=== PATIENT | male | born 1940 | race Caucasian/White ===

== ENCOUNTER 2016-11-20 09:38 | Inpatient (IN) | payer OTHER ==
[~2016-11-20] VITALS: Ht 188 cm; Wt 142.4 kg
[~2016-11-20 09:38] MED LIST: CEFUROXIME AXE500 MG PO; CLINDAMYCIN300 MG PO; DILTIAZEM CD240 MG PO; DOXYCYCLINE MO100 MG PO; E-400400 IU PO; ELIQUIS5 MG PO; FLOMAX(MONOGRA0.4 MG PO; FUROSEMIDE40 MG PO; KEFLEX500 MG PO; LOPRESSOR100 M1 PO; METOPROLOL TART50 MG PO; MULTIVITAMIN1 TAB PO; SIMVASTATIN20 MG PO
--- NOTE | 2016-11-20 09:44 | NUR ---
PT STATES THAT HE WAS SENT BY DR AGUILAR FOR ADMISSION DUE TO R FOOT TOE INFECTIONS. PAIN 09/11 REFUSES MEDS AT TRIAGE, AFEBRILE WRITTEN BY JUDAH CERON.
--- NOTE | 2016-11-20 10:02 | NUR ---
PT AMB TO ROOM 5, AWAITING EVAL.
--- NOTE | 2016-11-20 10:05 | NUR ---
PHILLIP WILKINSON IN FOR EVAL.
--- NOTE | 2016-11-20 10:11 | ED UPPER/LOWER EXTREMITY COMPL ---
History of Present Illness General Chief Complaint: Lower Extremity Problems Stated Complaint: R LEG WOUND Source: patient, family Exam Limitations: no limitations Vital Signs & Intake/Output Vital Signs & Intake/Output Vital Signs Date Time Temp Pulse Resp B/P B/P Pulse O2 O2 Flow FiO2 Mean Ox Delivery Rate 11/24 0628 98.6 55 20 120/82 94 11/23 2158 54 132/78 11/23 2154 98.4 54 18 132/78 94 Room Air 11/23 1601 98.0 57 18 118/68 99 Room Air ED Intake and Output 11/24 0000 11/23 1200 Intake Total 240 100 Output Total 100 Balance 140 100 Intake, IV 100 Intake, Oral 240 0 Number 0 Bowel Movements Output, Urine 100 Reconcile Medications Apixaban (Eliquis) 5 MG TABLET 1 TAB PO BID Atrial Fibrillation Furosemide 40 MG TABLET 2 TAB PO DAILY CARDIO (Reported) Metoprolol Tartrate (Lopressor) 100 MG TABLET 1 TAB PO BID BP (Reported) Multivitamin (Multiple Vitamins) 1 EACH TABLET 1 TAB PO DAILY SUPPLEMENT ( Reported) Simvastatin (Zocor) 20 MG TAB 1 TAB PO QPM CHOLESTEROL (Reported) Tamsulosin Hydrochloride (Flomax) 0.4 MG CAP.ER.24H 1 CAP PO DAILY BPH ( Reported) Vitamin E (E-400) 400 IU SGL 1 TAB PO D SUPPLEMENT (Reported) Triage Note: PT STATES THAT HE WAS SENT BY DR AGUILAR FOR ADMISSION DUE TO R FOOT TOE INFECTIONS. PAIN 2/10 REFUSES MEDS AT TRIAGE, AFEBRILE Triage Nurses Notes Reviewed? yes Onset: Gradual Duration: worse persistent since (past several months) Timing: recent history Severity: moderate Severity Numbers: 7 No Modifying Factors: none HPI: Patient is a 76-year-old male presenting to the emergency department with chief complaint of worsening chronic wounds to his right lower extremity. Patient reports that he's been dealing with the wounds for the past 2-[address] Aguilar and Dr. molina to help manage his wounds. They've tried multiple different types of dressings which have not been helping. Denies any increased pain. No fevers or chills. Patient does report increased redness and discharge the area. The has been trying to soak up extra drainage with sanitation pads. Denies any cough or shortness of breath. No palpitations. He saw Dr. Aguilar yesterday and he advised him to come into the emergency department for admission due to worsening status of the wound. Most recently they were doing a Betadine dressing. (IDALIA MORROW) Allergies Coded Allergies: solifenacin (From VESICARE) (EYES SWELL 10/16/15) (IDA DOWNEY,JANESSA) Past History Travel History Traveled to [place] past 21 day No Medical History Any Pertinent Medical History? see below for history Neurological: NONE EENT: CELLULITIS Cardiovascular: AFIB, CAD, hypertension, hyperlipidemia, PVD Respiratory: pneumonia Gastrointestinal: NONE Hepatic: NONE Renal: benign prost hyperplasia Musculoskeletal: NONE Psychiatric: NONE Endocrine: obesity Blood Disorders: NONE Cancer(s): NONE ELECTRICIAN OUTSIDE/Reproductive: NONE Other Medical Hx: BPH, chronic venous insufficiency, recurrent cellulitis History of MRSA: Yes History of VRE: No History of CDIFF: No Pneumonia Vaccine: 05/28/10 Influenza Vaccine: 05/02/15 Surgical History Surgical History: non-contributory Psychosocial History Who do you live with Spouse Services at Home None What is your primary language Togolese Tobacco Use: Never used ETOH Use: denies use Illicit Drug Use: denies illicit drug use Family History Family History, If Any: Relation not specified for: *No pertinent family history Hx Contributory? No (IDALIA MORROW) Review of Systems Review of Systems Constitutional: Reports: no symptoms. Comments Review of systems: See HPI, All other systems negative. Constitutional, no chills fever or weight loss HEENT: No visual changes no sore throat no congestion Cardiovascular: No chest pain ,palpitation , orthopnea Skin, no jaundice Respiratory: No dyspnea cough sputum or hemoptysis GI: No nausea no vomiting : No dysuria No hematuria Muscle skeletal: no back pain, no neck pain, Neurologic: No increased numbness no confusion Psych: No stress anxiety or depression,. Heme/endocrine: No bruising no bleeding no polyuria or polydipsia Immunology: No splenectomy or history of AIDS (IDALIA MORROW) Physical Exam Physical Exam General Appearance: no apparent distress, alert, anxious, comfortable, obese Comments: Obese person in no acute distress HEENT: Pupils equally round and reactive to light and accommodation. Nose is atraumatic. Moist oral mucosa. Neck: Normal inspection Back: Nontender, Cardiovascular: Regular rate and rhythms no murmurs rubs or gallops, normal JVP Respiratory: No respiratory distress.breath sounds clear to auscultation bilaterally Abdomen: obese Extremity: Nonpitting edema noted over the left large family, 2+ pitting edema noted over the right lower extremity extending from the dorsum of the right foot up to mid monroy. Pedal pulses are 1+ bilaterally. Neuro: Alert oriented x3, slight diminished sensation to the right lower extremity on the dorsum of the foot. Unable to distinguish between sharp and dull but can still feel sensation. Skin: Erythema extending from the right foot up to mid monroy. Warm to palpation of this area. There is a 6.5 x 6.5 cm ulcerating lesion noted on the right medial malleolus, there is granulation tissue over this wound, unable to grade at this time. There is a second wound on the lateral aspect of the right monroy approximately 8 cm by 4-1/2 centimeters in size. Both wounds are ulcerous, erythematous. There is also granulation tissue on the second wound, unable to states at this time. There are ulcerous lesions noted between the first and second toe, second and third, third and fourth toes. Granulation tissue present. Unable to stage. Psych: Mood and affect is normal, memory and judgment is normal. (JAJA FISHER,IDALIA) Progress Differential Diagnosis: osteomyelitis, cellulitis Plan of Care: Orders Procedure Date/time Status Heart Healthy Diet 11/23 D Active EXTREMETIES OR SPEC 11/23 1346 Active FUNGAL CULTURE (INVASIVE) 11/23 1335 Active Current Medications Sig/Maria Teresa Start time Last Medication Dose Stop Time Status Admin Apixaban 5 MG BID 11/23 2199 AC 11/23 (Eliquis) 215 Furosemide 80 MG DAILY 11/21 1000 AC 11/23 (Lasix) 0904 Multivitamins 1 TAB DAILY 11/21 1000 AC 11/23 Therapeutic 0904 (Theragran-M Vitamins Tabs) Tamsulosin HCl 0.4 MG DAILY 11/21 1000 AC 11/23 (Flomax) 0904 Vitamin E 400 IU DAILY 11/21 1000 AC 11/23 (Vitamin E) 0903 Clotrimazole 1 DANY AT BEDTIME 11/20 2199 AC 11/22 (Lotrimin) 215 Metoprolol Tartrate 100 MG BID 11/20 2199 AC 11/23 (Lopressor) 215 Ampicillin Sodium/ 3,000 MG Q6 11/20 1800 AC 11/24 Sulbactam Sodium 0645 (Unasyn) Sodium Chloride 100 ML (Normal Saline 0.9%) Atorvastatin Calcium 10 MG 1700 11/20 1700 AC 11/23 (Lipitor) 1725 Acetaminophen 650 MG Q6P PRN 11/20 1315 AC (Tylenol) Oxycodone/ 1 TAB Q6P PRN 11/20 1315 AC Acetaminophen (Percocet) Oxycodone/ 2 TAB Q6P PRN 11/20 1315 AC Acetaminophen (Percocet) Laboratory Tests 11/24/16 0630: Anion Gap 8, Estimated GFR > 60, BUN/Creatinine Ratio 20.0, CBC w Diff NO MAN DIFF REQ, RBC 4.08 L, MCV 88.1, MCH 28.6, RDW 16.4 H, MPV 7.3 L, Gran % 69.6, Lymphocytes % 15.2 L, Monocytes % 10.6 H, Eosinophils % 4.0, Basophils % 0.6, Absolute Granulocytes 3.6, Absolute Lymphocytes 0.8 L, Absolute Monocytes 0.6, Absolute Eosinophils 0.2, Absolute Basophils 0, PUBS MCHC 32.5 L Microbiology 11/23 1334 EXTREMITIE: Fungal Culture - RECD 11/23 1334 EXTREMITIE: Gross Specimen Examination - RES GRAM NEGATIVE RODS GRAM POSITIVE COCCI 11/23 1334 EXTREMITIE: Gram Stain - RES Diagnostic Imaging: Viewed by Me: Radiology Read. Discussed w/RAD: Radiology Read. Radiology Impression: ? FB IN RIGHT [place]ROY (IDALIA MORROW) Departure Departure Time of Disposition: 1125 Disposition: HOME OR SELF CARE Condition: Stable Clinical Impression Primary Impression: Cellulitis Qualifiers: Site of cellulitis: unspecified site Qualified Code: L03.90 - Cellulitis, unspecified Secondary Impressions: Chronic wound of extremity Referrals: DEVORAH DOWNEY,ELDER Dumont (PCP/Family) Departure Forms: Customer Survey General Discharge Information Admission Note Spoke With: NAYA KNOX MD Documentation of Exam: Documentation of any treatments & extenuating circumstances including Concerns Regarding Discharge (functional status, medication knowledge or non-compliance, living conditions, etc.) that warrant an admission rather than observation: Patient requiring IV antibiotics, blood cultures to to return, wound debridement , elevation of the extremity. Podiatry consultation. Culture of the wound after debridement. Discharge at this time would be medically harmful. (JAJA FISHER,IDALIA) PA/JOINT SETTER Co-Sign Statement Statement: ED Attending supervision documentation- [X] I saw and evaluated the patient. I have also reviewed all the pertinent lab results and diagnostic results. I agree with the findings and the plan of care as documented in the PA's/JOINT SETTER's documentation. [X] I have reviewed the ED Record and agree with the PA's/JOINT SETTER's documentation. [] Additions or exceptions (if any) to the PAs/JOINT SETTER's note and plan are summarized below: [] (IDA DOWNEY,JANESSA) 11/20 121 EXTREMITIE: Culture & Sensitivity - ORD 11/20 1213 EXTREMITIE: Gram Stain - ORD 11/20 121 BODY FLUID: Body Fluid Culture - CAN Cancelled: OE 11/20 121 BODY FLUID: Gram Stain - CAN Cancelled: OE 11/20 1055 BLOOD: Blood Culture - RECD 11/20 1050 BLOOD: Blood Culture - RECD Diagnostic Imaging: Viewed by Me: Radiology Read. Discussed w/RAD: Radiology Read. Radiology Impression: ? FB IN RIGHT [place] Departure Departure Time of Disposition: 1125 Disposition: HOME OR SELF CARE Condition: Stable Clinical Impression Primary Impression: Cellulitis Qualifiers: Site of cellulitis: unspecified site Qualified Code: L03.90 - Cellulitis, unspecified Secondary Impressions: Chronic wound of extremity Referrals: ELDER FAIRCHILD MD (PCP/Family) Departure Forms: Customer Survey General Discharge Information Admission Note Spoke With: ABILIO DOWNEY,NAYA Documentation of Exam: Documentation of any treatments & extenuating circumstances including Concerns Regarding Discharge (functional status, medication knowledge or non-compliance, living conditions, etc.) that warrant an admission rather than observation: Patient requiring IV antibiotics, blood cultures to to return, wound debridement , elevation of the extremity. Podiatry consultation. Culture of the wound after debridement. Discharge at this time would be medically harmful.
--- NOTE | 2016-11-20 10:30 | NUR ---
MICHELLE WOUND NURSE AT BEDSIDE TO DRESS RIGHT FOOT WOUND.
[2016-11-20 11:06] LABS: ABSOLUTE BASOPHIL COUNT 0.1 /CUMM (0.0-0.2); ABSOLUTE EOSINOPHIL COUNT 0.3 /CUMM (0.0-0.7); ABSOLUTE GRANULOCYTE CT 5.5 /CUMM (1.4-6.5); ABSOLUTE LYMPH COUNT 0.9 /CUMM (1.2-3.4); ABSOLUTE MONOCYTE COUNT 0.8 /CUMM (0.10-0.60); BASOPHIL % 0.8 % (0.0-2.0); EOSINOPHIL % 3.6 % (0-5); HEMATOCRIT 36.8 % (42-52); MEAN CORPUSCULAR HGB 29.2 PG (27.0-31.0); MEAN CORPUSCULAR HGB CONC 33.5 G/DL (33.0-37.0); MEAN CORPUSCULAR VOLUME 87.3 FL (80.0-94.0); PLATELET COUNT 284 /CUMM (130-400); RBC DISTRIBUTION WIDTH 16.3 % (11.5-14.5); RED BLOOD CELL CT 4.21 /CUMM (4.70-6.10); WHITE BLOOD CELL COUNT 7.5 /CUMM (4.8-10.8)
--- NOTE | 2016-11-20 11:24 | NUR ---
PT TO X-RAY
--- NOTE | 2016-11-20 11:36 | NUR ---
BACK FROM X-RAY
--- NOTE | 2016-11-20 11:54 | RADIOLOGY REPORT ---
EXAMINATION: XRY-ANKLE 3 OR MORE VIEWS R, XRY-FOOT COMPLETE, R, [id number], RIGHT CLINICAL INFORMATION: Chronic wound. Getting worse. Rule out osteomyelitis. COMPARISON: Right foot radiographs 10/21/2016 and earlier TECHNIQUE: AP and lateral views of the right tibia and fibula. AP, lateral, and oblique views of the right ankle. AP, lateral, and oblique views of the right foot. FINDINGS: Mild to moderate medial and lateral compartment joint space narrowing of the right knee. There is tibial spine hypertrophy and lateral marginal osteophytosis. There are vascular calcifications. No knee joint effusion. There is a curvilinear metallic object overlying the soft tissues of the distal third of the tibia, medially no fracture or dislocation seen. No osseous destruction, erosion, or periostitis seen. There is a soft tissue defect of the medial soft tissues at the level of the medial malleolus and distal tibia. The subjacent tibial cortex appears intact without evidence of periosteal reaction, erosion, or cortical destruction. Ankle mortise intact. Mild lateral soft tissue swelling. No fracture seen. There is likely a small tibiotalar joint effusion. There is enthesopathy of the distal Achilles tendon attachment to the calcaneus. Small plantar calcaneal spur seen. There is spurring of the dorsal midfoot, particularly from the anterior talus. There are degenerative changes of the midfoot, most notable at the first metatarsal cuneiform articulation. There are hammertoe deformities of the second through fifth toes. Mild hallux valgus deformity. First metatarsophalangeal joint arthrosis. IMPRESSION: No acute osseous abnormality. Multifocal degenerative changes as described above. There is a soft tissue abnormality overlying the medial malleolus and medial distal tibia consistent with soft tissue wound. Subjacent tibial cortex is intact without evidence of erosion, destruction, or periosteal reaction. If there is further clinical concern for osteomyelitis, consider MRI. Curvilinear metallic foreign body seen within the medial soft tissues at the level of the mid to distal tibia. This could represent a radiopaque foreign body or sequelae of prior surgery or procedure.
--- NOTE | 2016-11-20 12:05 | History & Physical ---
General Information and HPI MD Statement: I have seen and personally examined GLADYS RAMIREZ and documented this H&P. The patient is a 76 year old M who presented with a patient stated chief complaint of [RT. lower extrimity pain, worsening wound]. Source of Information: patient, old records Exam Limitations: no limitations History of Present Illness: is a 75-year-old morbidly obese male with past medical history significant for hypertension, hyperlipidemia, obesity, atrial fibrillation on Elequis, BPH, CAD, Obesity, chronic venous insufficiency with chronic venous ulcer status, and recurrent cellulitis of his right lower extremity presented to the ED with a c/o of worsening wound on the RT. lower extrimity. Patient has been seen by for wound care of chronic wound on Rt. lower extrimity, he had wound on the lateral and medical aspect of Rt. Ankle, about 2 months ago he developed a hammr toe which progressed to open wound over the 2nd toe, he had wound care over the last 2 months with no improvement, refer him to for more evaluation, he has been seen by yesterday who advised him to come to ED for more evaluation as the wound appeared infected. Patient report swelling, redness, hotness and pain over wounds, the worst wound is the one that is on the medial aspect of the ankle and the one over the second toe. He denies fever, chills, no n/v, no cp, sob, and there is no chane in the urinary or bowel habits. Allergies/Medications Allergies: Coded Allergies: Penicillins (THROAT SWELLING 10/16/15) solifenacin (From VESICARE) (EYES SWELL 10/16/15) Home Med list Apixaban (Eliquis) 5 MG TABLET 1 TAB PO BID Atrial Fibrillation Furosemide 40 MG TABLET 2 TAB PO DAILY CARDIO (Reported) Metoprolol Tartrate (Lopressor) 100 MG TABLET 1 TAB PO BID BP (Reported) Multivitamin (Multiple Vitamins) 1 EACH TABLET 1 TAB PO DAILY SUPPLEMENT ( Reported) Simvastatin (Zocor) 20 MG TAB 1 TAB PO QPM CHOLESTEROL (Reported) Tamsulosin Hydrochloride (Flomax) 0.4 MG CAP.ER.24H 1 CAP PO DAILY BPH ( Reported) Vitamin E (E-400) 400 IU SGL 1 TAB PO D SUPPLEMENT (Reported) Compliance With Home Meds: GOOD Past History Travel History Traveled to [place] past 21 day No Medical History Neurological: NONE EENT: CELLULITIS Cardiovascular: AFIB, CAD, hypertension, hyperlipidemia, PVD Respiratory: pneumonia Gastrointestinal: NONE Hepatic: NONE Renal: benign prost hyperplasia Musculoskeletal: NONE Psychiatric: NONE Endocrine: obesity Blood Disorders: NONE Cancer(s): NONE 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 Cardiovascular: Reports: no symptoms. Respiratory: Reports: no symptoms. Skin: Reports: see HPI, change in skin color, erythema. Neurological/Psychological: Reports: no symptoms. All Other Systems: Reviewed and Negative Exam & Diagnostic Data Last 24 Hrs of Vital Signs/I&O Vital Signs Date Time Temp Pulse Resp B/P B/P Pulse O2 O2 Flow FiO2 Mean Ox Delivery Rate 11/20 0943 97.1 64 18 105/66 97 Room Air Intake & Output 11/20 1600 11/20 0800 11/20 0000 Intake Total 500 Output Total Balance 500 Intake, IV 500 Patient 325 lb Weight Physical Exam General Appearance Alert, Oriented X3, Cooperative, No Acute Distress Skin Rt. lower extrimity covered with clean dressing, at the border of the dressing skin appears red and swollen, hot to touch. Rt. lower extrimity dark skin color, there is a healing wound over the medial aspect of the foot with black eschar, there is also open ulcer over the second toe Cardiovascular Regular Rate, Normal S1, Normal S2 Lungs Clear to Auscultation, Normal Air Movement Abdomen Normal Bowel Sounds, Soft, No Tenderness Extremities As described above Last 24 Hrs of Labs/Charly: Laboratory Tests 11/20/16 1050: Lactic Acid Pending 11/20/16 1050: Anion Gap 12, Estimated GFR > 60, BUN/Creatinine Ratio 26.0 H, Glucose 82, Lactic Acid 1.5, Calcium 8.4, Total Bilirubin 0.7, AST 20, ALT 24, Alkaline Phosphatase 88, C-Reactive Prot, Quant 3.3 H, Total Protein 7.7, Albumin 3.5, Globulin 4.2, Albumin/Globulin Ratio 0.8 L, CBC w Diff NO MAN DIFF REQ, RBC 4.21 L, MCV 87.3, MCH 29.2, RDW 16.3 H, MPV 7.0 L, Gran % 73.0, Lymphocytes % 12.3 L, Monocytes % 10.3 H, Eosinophils % 3.6, Basophils % 0.8, Absolute Granulocytes 5.5, Absolute Lymphocytes 0.9 L, Absolute Monocytes 0.8 H, Absolute Eosinophils 0.3, Absolute Basophils 0.1, PUBS MCHC 33.5, ESR Westergren Pending Microbiology 11/20 1214 BODY FLUID: Body Fluid Culture - ORD 11/20 1214 BODY FLUID: Gram Stain - ORD 11/20 1055 BLOOD: Blood Culture - RECD 11/20 1050 BLOOD: Blood Culture - RECD Diagnostic Data Other Results Rt. lower extrimity X-ray: IMPRESSION: No acute osseous abnormality. Multifocal degenerative changes as described above. There is a soft tissue abnormality overlying the medial malleolus and medial distal tibia consistent with soft tissue wound. Subjacent tibial cortex is intact without evidence of erosion, destruction, or periosteal reaction. If there is further clinical concern for osteomyelitis, consider MRI. Curvilinear metallic foreign body seen within the medial soft tissues at the level of the mid to distal tibia. This could represent a radiopaque foreign body or sequelae of prior surgery or procedure. Assessment/Plan Assessment: is a 75-year-old morbidly obese male with past medical history significant for hypertension, hyperlipidemia, obesity, atrial fibrillation on Elequis, BPH, CAD, Obesity, chronic venous insufficiency with chronic venous ulcer status, and recurrent cellulitis of his right lower extremity presented to the ED with a c/o of worsening wound on the RT. lower extrimity. Admitted for cellulitis. Vitals, exam and labs as above Assessment: #Cellulitis of Rt.Lower extrimity needs to R/O osteomyelitis #Hx. of atrial fibrillation on Elequis #Hx. of hypertension, hyperlipidemia #chronic venous insufficiency with chronic venous ulcer status #Hx. of BPH Plan: -Will admitt to general medicine floor -Will start IV antibiotic -Blood culture sent by ED, will f/u -Will send wound culture -Monitor for any spiking fever -Will obtain podiatry consult with -Will obtain wound consult with -Assess the need of MRI of RT. lower extrimity to R/O osteomyelitis -Will continue all home meds -Wound care, daily dressing -Elevate rt. lower extrimity to reduce edema -Will order rt. lower extrimity venous doppler to R/O DVT Pain pathway Heart healthy diet DVT PPX. Eliquis Full code As Ranked By This Provider Problem List: 1. Atrial fibrillation 2. RLE CELLULITIS 3. Morbid obesity Core Measures/Miscellaneous Acute Coronary Syndrome ACS Diagnosis: No Cerebrovascular Accident CVA/TIA Diagnosis: No Congestive Heart Failure CHF Diagnosis: No Venous Thromboembolism VTE Risk Factors: Acute medical illness, Age > 40, Obesity [facility] prophylaxis d/t: No contraindications No VTE Pharm Prophylaxis d/t: No contraindications VTE Diagnosis: No VTE Type: NONE VTE Confirmed by (Test): NONE Severe Sepsis Severe Sepsis Present: No Septic Shock Septic Shock Present: No Miscellaneous Documentation Attending Case Discussed With: Primary Care Physician: ELDER FAIRCHILD MD Patient sees these Specialists Supply Chain Associate Wound care: and Level of Patient Care: General Medicine
--- NOTE | 2016-11-20 12:23 | NUR ---
HOUSESTAFF IN FOR EVAL
--- NOTE | 2016-11-20 13:13 | NUR ---
DR AGUILAR AT BEDSIDE.
--- NOTE | 2016-11-20 13:26 | Cons- Podiatry ---
General Information and HPI Consulting Request Date of Consult: 11/20/16 Requested By: NAYA KNOX MD History of Present Illness: Mr. Everett is a 76-year-old male with an extensive past medical history including chronic venous insufficiency with associated nonhealing ulcers to his right lower extremity. The patient has been seen by me in the wound center for periodic debridements and local intensive wound care. Unfortunately, the patient's foot and ankle have worsened over the recent interval with the patient reporting worsening symptoms of pain redness and swelling from his right lower extremity. The patient denies systemic signs of infection. The patient denies nausea vomiting fever chills. Allergies/Medications Allergies: Coded Allergies: Penicillins (THROAT SWELLING 10/16/15) solifenacin (From VESICARE) (EYES SWELL 10/16/15) Home Med List: Apixaban (Eliquis) 5 MG TABLET 1 TAB PO BID Atrial Fibrillation Furosemide 40 MG TABLET 2 TAB PO DAILY CARDIO (Reported) Metoprolol Tartrate (Lopressor) 100 MG TABLET 1 TAB PO BID BP (Reported) Multivitamin (Multiple Vitamins) 1 EACH TABLET 1 TAB PO DAILY SUPPLEMENT ( Reported) Simvastatin (Zocor) 20 MG TAB 1 TAB PO QPM CHOLESTEROL (Reported) Tamsulosin Hydrochloride (Flomax) 0.4 MG CAP.ER.24H 1 CAP PO DAILY BPH ( Reported) Vitamin E (E-400) 400 IU SGL 1 TAB PO D SUPPLEMENT (Reported) Past History Medical History Neurological: NONE EENT: CELLULITIS Cardiovascular: AFIB, CAD, hypertension, hyperlipidemia, PVD Respiratory: pneumonia Gastrointestinal: NONE Hepatic: NONE Renal: benign prost hyperplasia Musculoskeletal: NONE Psychiatric: NONE Endocrine: obesity Blood Disorders: NONE Cancer(s): NONE 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/Reproductive: NONE Other Medical Hx: BPH, chronic venous insufficiency, recurrent cellulitis Surgical History Pertinent Surgical History: non-contributory Family History Relations & Conditions If Any: Relation not specified for: *No pertinent family history Psychosocial History Services at Home: None ETOH Use: denies use Illicit Drug Use: denies illicit drug use Review of Systems Review of Systems: Unremarkable except for that noted history of present illness Exam & Diagnostic Data Vital Signs and I&O Vital Signs Date Time Temp Pulse Resp B/P B/P Pulse O2 O2 Flow FiO2 Mean Ox Delivery Rate 11/20 0943 97.1 64 18 105/66 97 Room Air Intake & Output 11/20 1600 11/20 0800 11/20 0000 11/19 1600 11/19 0800 11/19 0000 Intake Total 500 Output Total Balance 500 Intake, IV 500 Patient 325 lb Weight Physical Exam: Multiple necrotic ulcers noted to the distal lateral leg and the medial ankle. There is necrotic slough overlying a mixed granular and fibrotic wound bed. No probing or undermining identified. A moderate amount of serous drainage is noted from the wound beds. There is chronic edema noted to the right lower extremity, especially involving the foot and the digits. The webspaces to the right foot noted to be macerated with fungoid appearing debris identified. Assessment/Plan Assessment/Plan Right lower extremity cellulitis in the setting of chronic venous insufficiency and nonhealing ulcerations. Recommend strict elevation of the right lower extremity above the level of the heart. Broad-spectrum IV antibiotic coverage. Tentatively plan on a formal debridement of his necrotic wounds on Wednesday. Consult Acknowledgment - Thank you for your consult request. Attending Review Statement Attending Statement Attending Statement: examined this patient
--- NOTE | 2016-11-20 13:50 | NUR ---
BED ASSIGNMENT 217
--- NOTE | 2016-11-20 14:15 | NUR ---
SPOKE WITH DR COMBS, PT IS TO BE STARTED ON HEPARIN DRIP HE WILL BE OFF OF ELIQUIS DUE TO OR ON WEDNESDAY.
--- NOTE | 2016-11-20 14:20 | NUR ---
HEPARIN DRIP STARTED AT 26ML/ HR. PTT DUE IN 6 HOURS.
--- NOTE | 2016-11-20 14:29 | ULTRASOUND REPORT ---
EXAMINATION: US TRIPLEX LOWER EXTREMITY, RIGHT CLINICAL INFORMATION: Right lower extremity swelling COMPARISON: None TECHNIQUE: Color-flow triplex imaging with spectral analysis and compression Doppler were performed on the right lower extremity. FINDINGS: Respiratory variation, normal compression and augmented flow are noted throughout the lower extremity. The visualized common femoral vein, superficial femoral vein, profunda femoral vein, popliteal vein and midcalf peroneal and posterior tibial venous segments show no evidence of deep venous thrombosis. There is no Jacinto's cyst. IMPRESSION: Normal triplex scan without evidence of deep venous thrombosis involving the right lower extremity.
--- NOTE | 2016-11-20 14:32 | NUR ---
REPORT TO NEMO CERON ON 2NB. OK TO SEND PT NOW. TRANSPORT CALLED.
--- NOTE | 2016-11-20 14:52 | NUR ---
PT TO FLOOR VIA STRETCHER. ALL PAPERWORK AND BELONGINGS SENT WITH PT. CLINICAL STATUS UNCHANGED.
[2016-11-20 15:00] VITALS: BP 118/80
--- NOTE | 2016-11-20 15:00 | NUR ---
ADMISSION NOTE: PT ARRIVED TO FLOOR ON STRETCHER WITH DISTRIBUTION, A/OX3, RA, IV INTACT, IV HEPARIN GTT RUNNING PER MD ORDER, RLE DRESSED BY WOUND NURSE, 0/10 PAIN REPORTED, RASH NOTED TO BUE, LOWER BACK-CHARTED ON SKIN MAN, ORIENTED TO ROOM, RESTING COMFORTABLY IN BED, WILL CONTINUE TO MONITOR.
--- NOTE | 2016-11-20 16:22 | Cons- Infect Disease ---
General Information and HPI Consulting Request Date of Consult: 11/20/16 Requested By: NAYA KNOX MD Reason for Consult: Rule out cellulitis right foot Source of Information: patient, old records History of Present Illness: This is a 68-year-old man with a history of atrial fibrillation, coronary artery disease, chronic venous insufficiency, with recurrent cellulitis of the right leg, requiring multiple hospitalizations, most recently one year prior to admission, with a chronic right medial malleolar ulcer and more recent onset, over the past several months, of ulcerations and maceration of the toes and dorsal and lateral aspects of the right foot, treated with local wound care and with at least one course of antibiotics (Bactrim) without improvement, admitted today after he was referred to the emergency room by Podiatry for admission for further management of his wounds. He does note mild discomfort in the right foot, but he denies any recent fevers or chills. He is apparently scheduled for surgery next week for debridement of the necrotic ulcers. Allergies/Medications Allergies: Coded Allergies: Penicillins (THROAT SWELLING 10/16/15) solifenacin (From VESICARE) (EYES SWELL 10/16/15) Home Med List: Apixaban (Eliquis) 5 MG TABLET 1 TAB PO BID Atrial Fibrillation Furosemide 40 MG TABLET 2 TAB PO DAILY CARDIO (Reported) Metoprolol Tartrate (Lopressor) 100 MG TABLET 1 TAB PO BID BP (Reported) Multivitamin (Multiple Vitamins) 1 EACH TABLET 1 TAB PO DAILY SUPPLEMENT ( Reported) Simvastatin (Zocor) 20 MG TAB 1 TAB PO QPM CHOLESTEROL (Reported) Tamsulosin Hydrochloride (Flomax) 0.4 MG CAP.ER.24H 1 CAP PO DAILY BPH ( Reported) Vitamin E (E-400) 400 IU SGL 1 TAB PO D SUPPLEMENT (Reported) Past History Travel History Traveled to [place] past 21 day No Medical History Blood Transfusion Hx: No Neurological: NONE Cardiovascular: AFIB, CAD, chronic venous insuff, hypertension, hyperlipidemia, PVD Respiratory: pneumonia Gastrointestinal: NONE Hepatic: NONE Renal: benign prost hyperplasia Musculoskeletal: NONE Psychiatric: NONE Endocrine: obesity Blood Disorders: NONE Cancer(s): NONE BRAILLE CODER/Reproductive: NONE Other Medical Hx: Recurrent cellulitis of the right leg History of MRSA: Yes History of VRE: No History of CDIFF: No Pneumonia Vaccine: 05/28/10 Influenza Vaccine: 05/02/16 Surgical History Surgical History: status post venous stripping Family History Relations & Conditions If Any: Relation not specified for: *No pertinent family history Psychosocial History Services at Home: None Smoking Status: Never Smoked ETOH Use: denies use Illicit Drug Use: denies illicit drug use Review of Systems Review of Systems All Other Systems: Reviewed and Negative Exam & Diagnostic Data Last 24 Hrs of Vital Signs/I&O Vital Signs Date Time Temp Pulse Resp B/P B/P Pulse O2 O2 Flow FiO2 Mean Ox Delivery Rate 11/20 1500 98.4 70 16 118/80 98 Room Air 11/20 1323 97.0 68 18 131/68 98 Room Air 11/20 1130 97.1 70 20 126/70 98 Room Air 11/20 0943 97.1 64 18 105/66 97 Room Air Intake & Output 11/20 1600 11/20 0800 11/20 0000 Intake Total 500 Output Total Balance 500 Intake, IV 500 Patient 325 lb Weight Weight Reported by Patient Measurement Method Physical Exam Other Physical Findings: He is awake and alert in no acute distress. He is afebrile. Skin reveals no rash. HEENT exam is negative. Neck is supple with no adenopathy. Lungs are clear. Heart regular rhythm with no murmur. Abdomen is soft, nontender with positive bowel sounds. Back no CVA tenderness. Extremities chronic venous stasis changes both lower extremities; decreased pulses both feet; right foot swelling and erythema, with maceration of the toes and with necrotic slough over the medial malleolar, dorsal and lateral ulcers; slightly tender to palpation; left second toe ulcer over the dorsal aspect with no surrounding inflammation. Neuro is without focality. Last 24 Hours of Lab Results: Laboratory Tests 11/20 11/20 1050 1050 Chemistry Sodium (137 - 145 mmol/L) 138 Potassium (3.5 - 5.1 mmol/L) 4.2 Chloride (98 - 107 mmol/L) 98 Carbon Dioxide (22 - 30 mmol/L) 29 Anion Gap (5 - 16) 12 BUN (9 - 20 mg/dL) 26 H Creatinine (0.7 - 1.2 mg/dL) 1.0 Estimated GFR (>60 ml/min) > 60 BUN/Creatinine Ratio (7 - 25 %) 26.0 H Glucose (65 - 99 mg/dL) 82 Lactic Acid (0.7 - 2.1 mmol/L) Cancelled 1.5 Calcium (8.4 - 10.2 mg/dL) 8.4 Total Bilirubin (0.2 - 1.3 mg/dL) 0.7 AST (17 - 59 U/L) 20 ALT (21 - 72 U/L) 24 Alkaline Phosphatase (< 127 U/L) 88 C-Reactive Prot, Quant (<1.0 mg/dL) 3.3 H Total Protein (6.3 - 8.2 g/dL) 7.7 Albumin (3.5 - 5.0 g/dL) 3.5 Globulin (1.9 - 4.2 gm/dL) 4.2 Albumin/Globulin Ratio (1.1 - 2.2 %) 0.8 L Hematology CBC w Diff NO MAN DIFF REQ WBC (4.8 - 10.8 /CUMM) 7.5 RBC (4.70 - 6.10 /CUMM) 4.21 L Hgb (14.0 - 18.0 G/DL) 12.3 L Hct (42 - 52 %) 36.8 L MCV (80.0 - 94.0 FL) 87.3 MCH (27.0 - 31.0 PG) 29.2 RDW (11.5 - 14.5 %) 16.3 H Plt Count (130 - 400 /CUMM) 284 MPV (7.4 - 10.4 FL) 7.0 L Gran % (42.2 - 75.2 %) 73.0 Lymphocytes % (20.5 - 51.1 %) 12.3 L Monocytes % (1.7 - 9.3 %) 10.3 H Eosinophils % (0 - 5 %) 3.6 Basophils % (0.0 - 2.0 %) 0.8 Absolute Granulocytes (1.4 - 6.5 /CUMM) 5.5 Absolute Lymphocytes (1.2 - 3.4 /CUMM) 0.9 L Absolute Monocytes (0.10 - 0.60 /CUMM) 0.8 H Absolute Eosinophils (0.0 - 0.7 /CUMM) 0.3 Absolute Basophils (0.0 - 0.2 /CUMM) 0.1 PUBS MCHC (33.0 - 37.0 G/DL) 33.5 ESR Westergren (0 - 10 MM) 41 H Last 24 Hours of Charly Results: Blood cultures November 20 pending Diagnostic Data Recent Imaging Findings: X-rays of the right foot, ankle, tibia and fibula November 20 reveals no evidence of osteomyelitis Doppler of the right leg November 20 negative Assessment/Plan Assessment/Plan Impression: This is a 76-year-old man with chronic venous insufficiency, recurrent cellulites of the right leg and chronic, nonhealing ulcers of the right leg and foot, with worsening inflammation over the last several weeks, admitted today for further management of these ulcers in anticipation of debridement next week. He appears to have, at the least, a localized cellulitis of the right foot, with the possibility of a fungal superinfection involving the interdigital webspaces. He has no fever or leukocytosis; therefore the role of antibiotics is unclear, but, with the erythema and tenderness, it may be reasonable to cover him empirically. Of note he has a remote history of a penicillin allergy, but it appears that he tolerated a dose of Unasyn in the emergency room on 2011 and he has tolerated cephalosporins. Underlying osteomyelitis is possible, but his x-rays are negative, and it does not appear that he has any significant arterial disease that would increase his risk for this. Of note he has had a stimulator implanted in the right lower back for bladder incontinence, which precludes the ability for him to have an MRI. Suggestion: 1. Elevation of the right leg 2. Await debridement in the OR next week 3. KIA of the interdigital webspaces 4. Could apply a topical antifungal (for example Miconazole) to his interdigital webspaces 5. Begin Unasyn 3 g IV every 6 hours Consult Acknowledgment - Thank you for your consult request.
[2016-11-20 21:16] LABS: PTT 39 SEC (25-37)
[2016-11-20 22:34] VITALS: BP 110/62
[2016-11-21 04:47] LABS: PTT > 120 SEC (25-37)
[2016-11-21 07:07] VITALS: BP 124/72
[2016-11-21 08:03] LABS: ABSOLUTE BASOPHIL COUNT 0 /CUMM (0.0-0.2); ABSOLUTE EOSINOPHIL COUNT 0.2 /CUMM (0.0-0.7); ABSOLUTE GRANULOCYTE CT 4.9 /CUMM (1.4-6.5); ABSOLUTE LYMPH COUNT 0.9 /CUMM (1.2-3.4); ABSOLUTE MONOCYTE COUNT 0.6 /CUMM (0.10-0.60); BASOPHIL % 0.7 % (0.0-2.0); EOSINOPHIL % 3.6 % (0-5); GRANULOCYTE % 73.2 % (42.2-75.2); HEMATOCRIT 37.4 % (42-52); MEAN CORPUSCULAR VOLUME 87.8 FL (80.0-94.0); MEAN PLATELET VOLUME 7.6 FL (7.4-10.4); PLATELET COUNT 243 /CUMM (130-400); RBC DISTRIBUTION WIDTH 16.3 % (11.5-14.5); RED BLOOD CELL CT 4.26 /CUMM (4.70-6.10); WHITE BLOOD CELL COUNT 6.7 /CUMM (4.8-10.8)
--- NOTE | 2016-11-21 08:44 | PN- Housestaff ---
Subjective Follow-up For: cellulitis Subjective: Saw pt at bedside this AM. He denied any pain. He stated he felt well. No acue overnight events and no complaints. Pt on heparin, leg elevated. Needs dressing change. Review of Systems Constitutional: Denies: chills, fever, weakness. EENTM: Reports: no symptoms. Cardiovascular: Denies: chest pain, palpitations. Respiratory: Reports: no symptoms. Gastrointestinal: Reports: no symptoms. Genitourinary: Reports: no symptoms. Musculoskeletal: Reports: joint pain, joint swelling, muscle pain. Skin: Reports: no symptoms. Objective Last 24 Hrs of Vital Signs/I&O Vital Signs Date Time Temp Pulse Resp B/P B/P Pulse O2 O2 Flow FiO2 Mean Ox Delivery Rate 11/21 0707 124/72 11/21 0653 98.8 64 20 96 11/20 2234 99.0 68 20 110/62 97 Room Air 11/20 2221 68 110/62 11/20 1500 98.4 70 16 118/80 98 Room Air 11/20 1323 97.0 68 18 131/68 98 Room Air 11/20 1130 97.1 70 20 126/70 98 Room Air 11/20 0943 97.1 64 18 105/66 97 Room Air Intake & Output 11/21 1600 11/21 0800 11/21 0000 Intake Total 760 517.8 Output Total 375 250 Balance 385 267.8 Intake, IV 520 37.8 Intake, Oral 240 480 Number 0 Bowel Movements Output, Urine 375 250 Physical Exam General Appearance: Alert, Oriented X3, Cooperative, No Acute Distress Skin: RLE in bandages. Chronic skin changes and erythema on plantar surface of foot extending past ankle. HEENT: Atraumatic, PERRLA, EOMI Neck: Supple Cardiovascular: Regular Rate, Normal S1, Normal S2 Lungs: Normal Air Movement Abdomen: Soft, No Tenderness Extremities: Pt has RLE elevated and in bandages. Did not unwrap. Bandages soiled. Wound foul smelling. Some serous drainage noted. No aydin purulence or bleeding Current Medications: Current Medications Sig/Maria Teresa Start time Last Medication Dose Route Stop Time Status Admin Acetaminophen 650 MG Q6P PRN 11/20 1315 AC PO Ampicillin Sodium/ 3,000 MG Q6 11/20 1800 AC 11/21 Sulbactam Sodium IV 0539 Sodium Chloride 100 ML Apixaban 5 MG BID 11/20 2200 CAN PO Atorvastatin Calcium 10 MG 1700 11/20 1700 AC 11/20 PO 1827 Ceftazidime 0 .STK-MED ONE 11/20 1103 DC .ROUTE Ceftazidime 1,000 MG ONCE ONE 11/20 1045 DC 11/20 IV 11/20 1046 1107 Ceftriaxone Sodium 1,000 MG ONCE ONE 11/20 1045 CAN IV 11/20 1046 Clotrimazole 1 DANY AT BEDTIME 11/20 2200 AC 11/20 TOP 2222 Furosemide 80 MG DAILY 11/21 1000 AC PO Heparin Sodium 15,000 UNIT .STK-MED ONE 11/20 220 DC (Porcine) IV 11/20 220 Heparin Sodium 11,056 UNIT ONCE ONE 11/20 2142 DC 11/20 (Porcine) IV 11/20 214 2222 Heparin Sodium 25,000 UNIT Q24H 11/20 1345 AC 11/20 (Porcine) IV 1420 Sodium Chloride 500 ML Metoprolol Tartrate 100 MG BID 11/20 2200 AC 11/20 PO 2221 Multivitamins 1 TAB DAILY 11/21 1000 AC Therapeutic PO Oxycodone/ 1 TAB Q6P PRN 11/20 1315 AC Acetaminophen PO Oxycodone/ 2 TAB Q6P PRN 11/20 1315 AC Acetaminophen PO Tamsulosin HCl 0.4 MG DAILY 11/21 1000 AC PO Vancomycin HCl 0 .STK-MED ONE 11/20 1103 DC .ROUTE Vancomycin HCl 2,000 MG ONCE ONE 11/20 1100 DC 11/20 Sodium Chloride 500 ML IV 11/20 1259 1140 Vitamin E 400 IU DAILY 11/21 1000 AC PO Assessment/Plan Assessment: This is a 76 yo male with PMH hypertension, hyperlipidemia, obesity, atrial fibrillation on Eliquis, BPH, CAD, Obesity, chronic venous insufficiency with chronic venous ulcers, and recurrent cellulitis of his right lower extremity who presented to the ED with CC of worsening wound on the RLE. Pt managed inpatient for non-healing ulcers and a concern for osteo. Possible debridement on 2016. TIB/FIB X-ray: IMPRESSION: No acute osseous abnormality. Multifocal degenerative changes as described above. There is a soft tissue abnormality overlying the medial malleolus and medial distal tibia consistent with soft tissue wound. Subjacent tibial cortex is intact without evidence of erosion, destruction, or periosteal reaction. If there is further clinical concern for osteomyelitis, consider MRI. Curvilinear metallic foreign body seen within the medial soft tissues at the level of the mid to distal tibia. This could represent a radiopaque foreign body or sequelae of prior surgery or procedure. PLAN Cellulitis of RLE with R/O osteomyelitis: Pt has non healing ulcers in setting of chronic venous insufficiency. No hx diabetes. Infection has been wrosening and failed outpt management. Has hx of MRSA/pseudomonas. Debridement with Dr. Corral tentatively on 11/23/2016. Doppler negative for any abnormality. See Xray above. Pt can't have MRI 2/2 stimulator placed in back. * follow blood cultures * IV Unasyn 3g q6 (DAY2) * elevate leg * wound dressing * podiatry consult * ID consult * KIA of interdigital spaces * Clotrimazole of interdigitial webspaces Hx. of atrial fibrillation on Elequis: Chronic and stable. * Held eliquis * Started Heparin in anticipation of surgery Hx. of hypertension, hyperlipidemia: Chronic and stable. * Con't home reg Hx. of BPH: Chronic and stable. * Con't home reg Pain pathway Heart healthy diet DVT PPX. Eliquis Full code Problem List: 1. Obesity 2. Chronic wound of extremity Pain Ratin Pain Location: none Pain Goal: Remain pain free Pain Plan: current reg Tomorrow's Labs & Rationales: cbc bep DVT/Prophylaxis: pharmacological
[2016-11-21 08:53] LABS: PTT > 120 SEC (25-37)
--- NOTE | 2016-11-21 09:16 | PN- Att Addend ---
Attending Addendum Attending Brief Note Attending note. This is a 68-year-old man with a history of atrial fibrillation, coronary artery disease, chronic venous insufficiency, with recurrent cellulitis of the right leg, requiring multiple hospitalizations, most recently one year prior to admission, with a chronic right medial malleolar ulcer and more recent onset, over the past several months, of ulcerations and maceration of the toes and dorsal and lateral aspects of the right foot, treated with local wound care and with at least one course of antibiotics (Bactrim) without improvement, admitted today after he was referred to the emergency room by Podiatry for admission for further management of his wounds. He does note mild discomfort in the right foot, but he denies any recent fevers or chills. He is apparently scheduled for surgery next week for debridement of the necrotic ulcers. Current Medications Sig/Maria Teresa Start time Last Medication Dose Route Stop Time Status Admin Acetaminophen 650 MG Q6P PRN 11/20 1315 AC PO Ampicillin Sodium/ 3,000 MG Q6 11/20 1800 AC 11/21 Sulbactam Sodium IV 0539 Sodium Chloride 100 ML Apixaban 5 MG BID 11/20 2200 CAN PO Atorvastatin Calcium 10 MG 1700 11/20 1700 AC 11/20 PO 1827 Ceftazidime 0 .STK-MED ONE 11/20 1103 DC .ROUTE Ceftazidime 1,000 MG ONCE ONE 11/20 1045 DC 11/20 IV 11/20 1046 1107 Ceftriaxone Sodium 1,000 MG ONCE ONE 11/20 1045 CAN IV 11/20 1046 Clotrimazole 1 DANY BID 11/21 1000 CANr TOP Clotrimazole 1 DANY AT BEDTIME 11/20 2200 AC 11/20 TOP 2222 Furosemide 80 MG DAILY 11/21 1000 AC PO Heparin Sodium 15,000 UNIT .STK-MED ONE 11/20 2202 DC (Porcine) IV 11/20 2202 Heparin Sodium 11,056 UNIT ONCE ONE 11/20 2142 DC 11/20 (Porcine) IV 11/20 2142 222 Heparin Sodium 25,000 UNIT Q24H 11/20 1345 AC 11/20 (Porcine) IV 1420 Sodium Chloride 500 ML Metoprolol Tartrate 100 MG BID 11/20 2200 AC 11/20 PO 2221 Multivitamins 1 TAB DAILY 11/21 1000 AC Therapeutic PO Oxycodone/ 1 TAB Q6P PRN 11/20 1315 AC Acetaminophen PO Oxycodone/ 2 TAB Q6P PRN 11/20 1315 AC Acetaminophen PO Tamsulosin HCl 0.4 MG DAILY 11/21 1000 AC PO Vancomycin HCl 0 .STK-MED ONE 11/20 1103 DC .ROUTE Vancomycin HCl 2,000 MG ONCE ONE 11/20 1100 DC 11/20 Sodium Chloride 500 ML IV 11/20 1259 1140 Vitamin E 400 IU DAILY 11/21 1000 AC PO Vital Signs Date Time Temp Pulse Resp B/P B/P Pulse O2 O2 Flow FiO2 Mean Ox Delivery Rate 11/21 0707 124/72 11/21 0653 98.8 64 20 96 11/20 2234 99.0 68 20 110/62 97 Room Air 11/20 2221 68 110/62 11/20 1500 98.4 70 16 118/80 98 Room Air 11/20 1323 97.0 68 18 131/68 98 Room Air 11/20 1130 97.1 70 20 126/70 98 Room Air 11/20 0943 97.1 64 18 105/66 97 Room Air Intake & Output 11/21 1600 11/21 0800 11/21 0000 Intake Total 760 517.8 Output Total 375 250 Balance 385 267.8 Intake, IV 520 37.8 Intake, Oral 240 480 Number 0 Bowel Movements Output, Urine 375 250 On examination patient is awake alert oriented 3. Vital signs are stable. Neck is supple JVD is not raised no cervical lymphadenopathy present. S1-S2 is normal Lungs air entry equal bilaterally no crepitations or rhonchi Abdomen is soft globular nontender bowel sounds are present. No CVA tenderness present. Right lower extremity is got chronic skin changes with the weeping ulcer on the dorsum of the foot with necrotic skin on the dorsum of the foot over the medial and the lateral malleolus. With also is present present. Pedal pulses are diminished bilaterally. His got some diminished sensations on his feet Assessment Cellulitis of the right leg secondary to chronic venous ulcerations. Patient is off Xarelto and currently on bridging for heparin. 1. Elevation of the right leg 2. Await debridement in the OR next week 3. KIA of the interdigital webspaces 4. Could apply a topical antifungal (for example Miconazole) to his interdigital webspaces 5. Begin Unasyn 3 g IV every 6 hours
--- NOTE | 2016-11-21 09:17 | Admission Certification ---
Admission Certification Certification Statement - As attending physician, I certify that at the time of - admission, based on clinical presentation, severity of - symptoms, need for further diagnostic testing and - therapeutic interventions, and risk of adverse outcomes - without in-hospital treatment, in my clinical assessment, - this patient requires an acute hospital stay for a minimum - of two nights or longer. I have also considered psychsocial - factors such as support system, advanced age, financial - issues, cognitive issues, and failed out-patient treatments, - past re-admission history, safety of patient, and lack of - compliance as applicable. Specific rationale supporting this admission is: Cellulitis with the ulcerations of the right foot admitted for IV antibiotics and debridement.
--- NOTE | 2016-11-21 13:35 | PN- Podiatry ---
Subjective Subjective: Patient seen at bedside with no new complaints. Patient afebrile overnight. Patient denies nausea vomiting fever chills. Objective Vital Signs and I&Os Vital Signs Date Time Temp Pulse Resp B/P B/P Pulse O2 O2 Flow FiO2 Mean Ox Delivery Rate 11/21 0959 54 120/62 11/21 0707 124/72 11/21 0653 98.8 64 20 96 11/20 2234 99.0 68 20 110/62 97 Room Air 11/20 2221 68 110/62 11/20 1500 98.4 70 16 118/80 98 Room Air Intake & Output 11/21 1600 11/21 0800 11/21 0000 11/20 1600 11/20 0800 11/20 0000 Intake Total 760 517.8 500 Output Total 375 250 Balance 385 267.8 500 Intake, IV 520 37.8 500 Intake, Oral 240 480 Number 0 Bowel Movements Output, Urine 375 250 Patient 325 lb Weight Weight Reported by Patient Measurement Method Physical Exam: Stable ulcers right lower extremity. Persistent edema and erythema noted to the right lower extremity. Significant maceration identified to the webspaces right foot. Necrotic ulcer is noted medially and laterally right ankle. Assessment/Plan Assessment/Plan Nonhealing ulcers with chronic venous insufficiency and right lower extremity cellulitis. Continue elevation and IV antibiotics. We'll schedule patient for formal debridement and compression Wednesday. Attending MD Review Statement Attending Statement Attending MD Statement: examined this patient
[2016-11-21 14:58] VITALS: BP 114/64
--- NOTE | 2016-11-21 15:08 | PN- Infect Dx ---
Subjective Subjective: Afebrile without complaints Objective Last 24 Hrs of Vital Signs/I&O Vital Signs Date Time Temp Pulse Resp B/P B/P Pulse O2 O2 Flow FiO2 Mean Ox Delivery Rate 11/21 1458 97.4 71 22 114/64 95 11/21 0959 54 120/62 11/21 0707 124/72 11/21 0653 98.8 64 20 96 11/20 2234 99.0 68 20 110/62 97 Room Air 11/20 2221 68 110/62 Intake & Output 11/21 1600 11/21 0800 11/21 0000 Intake Total 760 517.8 Output Total 375 250 Balance 385 267.8 Intake, IV 520 37.8 Intake, Oral 240 480 Number 0 Bowel Movements Output, Urine 375 250 Physical Exam Other Physical Findings: He appears comfortable in no acute distress Lungs are clear Extremities right foot dressing intact Results Last 24 Hours of Lab Results: Laboratory Tests 11/21 11/21 11/20 0650 0405 2014 Chemistry Sodium (137 - 145 mmol/L) 137 Potassium (3.5 - 5.1 mmol/L) 4.7 Chloride (98 - 107 mmol/L) 100 Carbon Dioxide (22 - 30 mmol/L) 28 Anion Gap (5 - 16) 9 BUN (9 - 20 mg/dL) 20 Creatinine (0.7 - 1.2 mg/dL) 0.8 Estimated GFR (>60 ml/min) > 60 BUN/Creatinine Ratio (7 - 25 %) 25.0 Coagulation APTT (25 - 37 SEC) > 120 *H > 120 *H 39 H Hematology CBC w Diff NO MAN DIFF REQ WBC (4.8 - 10.8 /CUMM) 6.7 RBC (4.70 - 6.10 /CUMM) 4.26 L Hgb (14.0 - 18.0 G/DL) 12.3 L Hct (42 - 52 %) 37.4 L MCV (80.0 - 94.0 FL) 87.8 MCH (27.0 - 31.0 PG) 29.0 RDW (11.5 - 14.5 %) 16.3 H Plt Count (130 - 400 /CUMM) 243 MPV (7.4 - 10.4 FL) 7.6 Gran % (42.2 - 75.2 %) 73.2 Lymphocytes % (20.5 - 51.1 %) 12.9 L Monocytes % (1.7 - 9.3 %) 9.6 H Eosinophils % (0 - 5 %) 3.6 Basophils % (0.0 - 2.0 %) 0.7 Absolute Granulocytes (1.4 - 6.5 /CUMM) 4.9 Absolute Lymphocytes (1.2 - 3.4 /CUMM) 0.9 L Absolute Monocytes (0.10 - 0.60 /CUMM) 0.6 Absolute Eosinophils (0.0 - 0.7 /CUMM) 0.2 Absolute Basophils (0.0 - 0.2 /CUMM) 0 PUBS MCHC (33.0 - 37.0 G/DL) 33.0 Last 24 Hours of Charly Results: Blood cultures 2 November 20 negative Assessment/Plan Impression: Stable on Unasyn Day 1 of treatment for infected venous stasis ulcers of the right foot, with severe maceration of the toes, with possible fungal superinfection. He remains afebrile with white blood cell count normal. He is scheduled for debridement of the foot on November 23. Suggestion: 1. Would remove Penicillin allergy from patient's history 2. Elevation of the right leg 3. Await debridement in the OR on November 23 4. KIA of the interdigital webspaces 5. Continue Unasyn
[2016-11-21 16:59] LABS: PTT 56 SEC (25-37)
[2016-11-21 21:30] VITALS: BP 141/70
--- NOTE | 2016-11-21 23:00 | NUR ---
ALERT AND ORIENTED X 3. VITAL SIGNS STABLE. DENIES CHEST PAIN. + PULSES ON ROOM AIR. NO DISTRESS NOTED. DSG TO RLE IS C/D/I. HEPARIN DRIP RUNNING PATIENT RESTING AT THIS TIME. WILL CONTINUE TO MONITOR
[2016-11-22 01:03] LABS: PTT 91 SEC (25-37)
[2016-11-22 07:46] VITALS: BP 129/69
--- NOTE | 2016-11-22 09:20 | PN- Att Addend ---
Attending Addendum Attending Brief Note Covering attending note. Patient is fairly stable his current no complaints except for pain in his right foot patient is scheduled to go to or for debridement of the ulcer. Current Medications Sig/Maria Teresa Start time Last Medication Dose Route Stop Time Status Admin Acetaminophen 650 MG Q6P PRN 11/20 1315 AC PO Ampicillin Sodium/ 3,000 MG Q6 11/20 1800 AC 11/22 Sulbactam Sodium IV 0532 Sodium Chloride 100 ML Atorvastatin Calcium 10 MG 1700 11/20 1700 AC 11/21 PO 1619 Clotrimazole 1 DANY AT BEDTIME 11/20 2200 AC 11/21 TOP 2136 Furosemide 80 MG DAILY 11/21 1000 AC 11/21 PO 0954 Heparin Sodium 5,700 UNIT ONE ONE 11/21 1759 DC 11/21 (Porcine) IV 11/21 1800 1815 Heparin Sodium 25,000 UNIT Q24H 11/20 1345 AC 11/22 (Porcine) IV 11/23 0000 0205 Sodium Chloride 500 ML Metoprolol Tartrate 100 MG BID 11/20 2200 AC 11/21 PO 2137 Multivitamins 1 TAB DAILY 11/21 1000 AC 11/21 Therapeutic PO 0955 Oxycodone/ 1 TAB Q6P PRN 11/20 1315 AC Acetaminophen PO Oxycodone/ 2 TAB Q6P PRN 11/20 1315 AC Acetaminophen PO Tamsulosin HCl 0.4 MG DAILY 11/21 1000 AC 11/21 PO 0959 Vitamin E 400 IU DAILY 11/21 1000 AC 11/21 PO 0955 Vital Signs Date Time Temp Pulse Resp B/P B/P Pulse O2 O2 Flow FiO2 Mean Ox Delivery Rate 11/22 0746 98.1 63 20 129/69 94 Room Air 11/21 2137 70 141/70 11/21 2130 98.2 70 20 141/70 94 Room Air 11/21 1458 97.4 71 22 114/64 95 11/21 0959 54 120/62 Intake & Output 11/22 1600 11/22 0800 11/22 0000 Intake Total 790 600 Output Total 250 450 Balance 540 150 Intake, IV 550 Intake, Oral 240 600 Number 0 Bowel Movements Output, Urine 250 450 Patient 314 lb Weight Weight Chair scale Measurement Method On examination Patient is awake alert in no distress. S1-S2 is normal Lungs are clear Abdomen is soft nontender bowel sounds are present Extremities right foot is wrapped up in a bandage. With a large amount of excess drainage from the wound. Laboratory Tests 11/22 11/22 11/21 0905 0020 1610 Chemistry Sodium Pending Potassium Pending Chloride Pending Carbon Dioxide Pending Anion Gap Pending BUN Pending Creatinine Pending BUN/Creatinine Ratio Pending Coagulation APTT (25 - 37 SEC) Pending 91 H 56 H Hematology CBC w Diff Pending WBC Pending RBC Pending Hgb Pending Hct Pending MCV Pending MCH Pending RDW Pending Plt Count Pending MPV Pending PUBS MCHC Pending Assessment Ulceration of the right foot patient is scheduled to go to the OR for debridement continue with IV antibiotics. Due to prophylaxis
[2016-11-22 09:23] LABS: ABSOLUTE BASOPHIL COUNT 0 /CUMM (0.0-0.2); ABSOLUTE EOSINOPHIL COUNT 0.2 /CUMM (0.0-0.7); ABSOLUTE LYMPH COUNT 0.8 /CUMM (1.2-3.4); ABSOLUTE MONOCYTE COUNT 0.5 /CUMM (0.10-0.60); BASOPHIL % 0.6 % (0.0-2.0); EOSINOPHIL % 3.5 % (0-5); GRANULOCYTE % 75.2 % (42.2-75.2); MEAN CORPUSCULAR HGB 29.1 PG (27.0-31.0); MEAN CORPUSCULAR VOLUME 88.3 FL (80.0-94.0); PLATELET COUNT 261 /CUMM (130-400); RBC DISTRIBUTION WIDTH 16.4 % (11.5-14.5); RED BLOOD CELL CT 4.18 /CUMM (4.70-6.10); WHITE BLOOD CELL COUNT 6.7 /CUMM (4.8-10.8)
[2016-11-22 09:40] LABS: PTT 47 SEC (25-37)
--- NOTE | 2016-11-22 09:58 | PN- Housestaff ---
Subjective Follow-up For: cellulitis Subjective: Afebrile, WBCs WNL, hemodynamically stable, no acute overnight events reported. The current complain and reported that his pain is well controlled. He shouldn' t is on heparin drip. Review of Systems Constitutional: Reports: no symptoms. Objective Last 24 Hrs of Vital Signs/I&O Vital Signs Date Time Temp Pulse Resp B/P B/P Pulse O2 O2 Flow FiO2 Mean Ox Delivery Rate 11/22 1436 97.9 56 20 126/84 96 Room Air 11/22 1055 63 129/69 11/22 0746 98.1 63 20 129/69 94 Room Air 11/21 2137 70 141/70 11/21 2130 98.2 70 20 141/70 94 Room Air Intake & Output 11/22 1600 11/22 0800 11/22 0000 Intake Total 1200 790 600 Output Total 975 250 450 Balance 225 540 150 Intake, IV 500 550 Intake, Oral 700 240 600 Number 1 0 Bowel Movements Output, Urine 975 250 450 Patient 142.428 kg Weight Weight Chair scale Measurement Method Physical Exam General Appearance: Alert, Oriented X3, Cooperative, No Acute Distress HEENT: Atraumatic, PERRLA, EOMI, Mucous Membr. moist/pink Cardiovascular: Regular Rate, Normal S1, Normal S2, No Murmurs Lungs: Clear to Auscultation, Normal Air Movement Abdomen: Normal Bowel Sounds, Soft, No Tenderness Neurological: Normal Speech Extremities: right LE is in bandages Current Medications: Current Medications Sig/Maria Teresa Start time Last Medication Dose Route Stop Time Status Admin Acetaminophen 650 MG Q6P PRN 11/20 1315 AC PO Ampicillin Sodium/ 3,000 MG Q6 11/20 1800 AC 11/22 Sulbactam Sodium IV 1257 Sodium Chloride 100 ML Atorvastatin Calcium 10 MG 1700 11/20 1700 AC 11/21 PO 1619 Clotrimazole 1 DANY AT BEDTIME 11/20 2200 AC 11/21 TOP 2136 Furosemide 80 MG DAILY 11/21 1000 AC 11/22 PO 1055 Heparin Sodium 5,700 UNIT 1032 11/22 1032 DC 11/22 (Porcine) IV 11/22 1033 1050 Heparin Sodium 5,700 UNIT ONE ONE 11/21 1759 DC 11/21 (Porcine) IV 11/21 1800 1815 Heparin Sodium 25,000 UNIT Q24H 11/20 1345 AC 11/22 (Porcine) IV 11/23 0000 1052 Sodium Chloride 500 ML Metoprolol Tartrate 100 MG BID 11/20 2200 AC 11/22 PO 1055 Multivitamins 1 TAB DAILY 11/21 1000 AC 11/22 Therapeutic PO 1055 Oxycodone/ 1 TAB Q6P PRN 11/20 1315 AC Acetaminophen PO Oxycodone/ 2 TAB Q6P PRN 11/20 1315 AC Acetaminophen PO Tamsulosin HCl 0.4 MG DAILY 11/21 1000 AC 11/22 PO 1055 Vitamin E 400 IU DAILY 11/21 1000 AC 11/22 PO 1055 Last 24 Hrs of Lab/Charly Results Last 24 Hrs of Labs/Mics: Laboratory Tests 11/22/16 1708: APTT Pending 11/22/16 0905: Anion Gap 9, Estimated GFR > 60, BUN/Creatinine Ratio 17.8, APTT 47 H, CBC w Diff NO MAN DIFF REQ, RBC 4.18 L, MCV 88.3, MCH 29.1, RDW 16.4 H, MPV 7.0 L, Gran % 75.2, Lymphocytes % 12.5 L, Monocytes % 8.2, Eosinophils % 3.5, Basophils % 0.6, Absolute Granulocytes 5.0, Absolute Lymphocytes 0.8 L, Absolute Monocytes 0.5, Absolute Eosinophils 0.2, Absolute Basophils 0, PUBS MCHC 33.0 11/22/16 0020: APTT 91 H Assessment/Plan Assessment: This is a 76 yo male with PMH hypertension, hyperlipidemia, obesity, atrial fibrillation on Eliquis, BPH, CAD, Obesity, chronic venous insufficiency with chronic venous ulcers, and recurrent cellulitis of his right lower extremity who presented to the ED with CC of worsening wound on the RLE. Pt managed inpatient for non-healing ulcers and a concern for osteo. Possible debridement on 2016. TIB/FIB X-ray: IMPRESSION: No acute osseous abnormality. Multifocal degenerative changes as described above. There is a soft tissue abnormality overlying the medial malleolus and medial distal tibia consistent with soft tissue wound. Subjacent tibial cortex is intact without evidence of erosion, destruction, or periosteal reaction. If there is further clinical concern for osteomyelitis, consider MRI. Curvilinear metallic foreign body seen within the medial soft tissues at the level of the mid to distal tibia. This could represent a radiopaque foreign body or sequelae of prior surgery or procedure. PLAN Cellulitis of RLE with R/O osteomyelitis: Pt has non healing ulcers in setting of chronic venous insufficiency. No hx diabetes. Infection has been wrosening and failed outpt management. Has hx of MRSA/pseudomonas. Debridement with Dr. Corral tentatively on 11/23/2016. Doppler negative for any abnormality. See Xray above. Pt can't have MRI 2/2 stimulator placed in back. * follow blood cultures * IV Unasyn 3g q6 (DAY3) * elevate leg * wound dressing * f/u podiatry consult * f/u ID consult * KIA of interdigital spaces * Clotrimazole of interdigitial webspaces Hx. of atrial fibrillation on Elequis: Chronic and stable. * Held eliquis * cont' Heparin in anticipation of surgery Hx. of hypertension, hyperlipidemia: Chronic and stable. * Con't home reg Hx. of BPH: Chronic and stable. * Con't home reg Pain pathway Heart healthy diet, NPO starting midnight for possible surgery in the morning DVT PPX. Eliquis Full code Problem List: 1. Obesity 2. RLE CELLULITIS Pain Ratin Pain Location: right foot Pain Goal: Remain pain free Pain Plan: See A&P Tomorrow's Labs & Rationales: DINA
--- NOTE | 2016-11-22 11:51 | PN- Podiatry ---
Subjective Subjective: Patient seen at bedside with no new complaints. Patient denies nausea vomiting fever chills. Objective Vital Signs and I&Os Vital Signs Date Time Temp Pulse Resp B/P B/P Pulse O2 O2 Flow FiO2 Mean Ox Delivery Rate 11/22 1055 63 129/69 11/22 0746 98.1 63 20 129/69 94 Room Air 11/21 2137 70 141/70 11/21 2130 98.2 70 20 141/70 94 Room Air 11/21 1458 97.4 71 22 114/64 95 Intake & Output 11/22 1600 11/22 0800 11/22 0000 11/21 1600 11/21 0800 11/21 0000 Intake Total 790 600 720 760 517.8 Output Total 250 450 375 250 Balance 540 150 720 385 267.8 Intake, IV 550 520 37.8 Intake, Oral 240 600 720 240 480 Number 0 0 Bowel Movements Output, Urine 250 450 375 250 Patient 314 lb Weight Weight Chair scale Measurement Method Physical Exam: Slightly improved edema right lower extremity with persistent maceration and scaling/desquamation of overlying tissue to the distal foot. Stable necrotic ulcers noted medial and lateral ankle. Assessment/Plan Assessment/Plan Right lower extremity cellulitis with chronic venous insufficiency. Patient nothing by mouth tonight for debridement and decompression of right lower extremity tomorrow. Attending MD Review Statement Attending Statement Attending MD Statement: examined this patient
[2016-11-22 14:36] VITALS: BP 126/84
--- NOTE | 2016-11-22 19:59 | Discharge Summary ---
Visit Information Visit Dates Admission Date: 11/20/16 Discharge Date: 11/25/16 Hospital Course Course Attending Physician: NAYA KNOX MD Primary Care Physician: ELDER FAIRCHILD MD Hospital Course: This is a 68-year-old man with a history of atrial fibrillation, coronary artery disease, chronic venous insufficiency, with recurrent cellulitis of the right leg, requiring multiple hospitalizations, most recently one year prior to admission, with a chronic right medial malleolar ulcer and more recent onset, over the past several months, of ulcerations and maceration of the toes and dorsal and lateral aspects of the right foot, treated with local wound care and with at least one course of antibiotics (Bactrim) without improvement, admitted this time to after he was referred to the emergency room by Podiatry for admission for further management of his wounds. He did notice mild discomfort in the right foot, but denied any recent fevers or chills. He was treated in the hospital for the following problems 1.Right leg cellulitis s/p debridement on 11/23/16 1.Hx. of atrial fibrillation on Elequis 2.Hx. of hypertension, hyperlipidemia 3.chronic venous insufficiency with chronic venous ulcer status 4.Hx. of BPH the patient was initially treated with IV Unasyn for cellulitis and soft tissue infection of the right foot. The patient underwent debridement of the wound. Please review operative report below for details. The patient wound culture grew Pseudomonas and strep. The patient was discharged with amoxicillin 500 mg 3 times a day and ciprofloxacin 500 mg twice a day with instructions to complete a 7 days course. He was left with 4 days of antibiotic therapy at the time of discharge The patient was instructed to do daily wound dressing change on the on the foot and dressing change on the leg every 3-4 days Patient was maintained on Eliquis for anticoagulation for atrial fibrillation No changes were made to the patient's medication Patient was discharged home with home services. Allergies: Coded Allergies: solifenacin (From [facility]) (EYES SWELL 10/16/15) Significant Procedures: Surgery Date: 11/23/16 Name of Procedure: 1 Open incision and drainage deep to the deep fascia with exposure of the tendon and tendon sheath right ankle 2 Intra-operative administration of ankle block anesthesia 3 Excisional debridement Pre-Operative Diagnosis: 1 Open, necrotic wound right ankle Post-Operative Diagnosis: The same Estimated Blood Loss: less than 50ml Surgeon/Stock Handler Floorperson: ELIZABETH AGUILAR DPM Anesthesia: moderate sedation, block Operative/Procedure Note Note: After obtaining informed consent, the patient was brought to the operating room and placed on the operating table in the supine position. The patient was then securely fastened to the operating table with a safety belt. After administration of IV sedation, 10cc of 0.5% marcaine plain was infiltrated about the right ankle. Pertinent Lab Results: Laboratory Tests 11/22 11/22 11/22 1708 0905 0020 Chemistry Sodium (137 - 145 mmol/L) 139 Potassium (3.5 - 5.1 mmol/L) 4.0 Chloride (98 - 107 mmol/L) 101 Carbon Dioxide (22 - 30 mmol/L) 29 Anion Gap (5 - 16) 9 BUN (9 - 20 mg/dL) 16 Creatinine (0.7 - 1.2 mg/dL) 0.9 Estimated GFR (>60 ml/min) > 60 BUN/Creatinine Ratio (7 - 25 %) 17.8 Coagulation APTT (25 - 37 SEC) Pending 47 H 91 H Hematology CBC w Diff NO MAN DIFF REQ WBC (4.8 - 10.8 /CUMM) 6.7 RBC (4.70 - 6.10 /CUMM) 4.18 L Hgb (14.0 - 18.0 G/DL) 12.2 L Hct (42 - 52 %) 37.0 L MCV (80.0 - 94.0 FL) 88.3 MCH (27.0 - 31.0 PG) 29.1 RDW (11.5 - 14.5 %) 16.4 H Plt Count (130 - 400 /CUMM) 261 MPV (7.4 - 10.4 FL) 7.0 L Gran % (42.2 - 75.2 %) 75.2 Lymphocytes % (20.5 - 51.1 %) 12.5 L Monocytes % (1.7 - 9.3 %) 8.2 Eosinophils % (0 - 5 %) 3.5 Basophils % (0.0 - 2.0 %) 0.6 Absolute Granulocytes (1.4 - 6.5 /CUMM) 5.0 Absolute Lymphocytes (1.2 - 3.4 /CUMM) 0.8 L Absolute Monocytes (0.10 - 0.60 /CUMM) 0.5 Absolute Eosinophils (0.0 - 0.7 /CUMM) 0.2 Absolute Basophils (0.0 - 0.2 /CUMM) 0 PUBS MCHC (33.0 - 37.0 G/DL) 33.0 Disposition Summary Disposition Principal Diagnosis: Cellulitis of the Rigt foot with the possibility of a fungal superinfection involving the interdigital webspaces. Additional Diagnosis: H/O chronic venous insufficiency, H/o recurrent cellulites of the right leg and chronic, nonhealing ulcers of the right leg and foot, History of atrial fibrillation on Eliquis Discharge Disposition: home health services Discharge Instructions General Discharge Information Code Status: Full Code Patient's Diet: as tolerated Patient's Activity: as tolerated Follow-Up Instructions/Appts: f/u with dr jaimes in1 week of discharge please change dressing on the foot daily The change dressing on the leg every 4 days Medications at Discharge Discharge Medications: Continue taking these medications: Furosemide (Furosemide) 40 MG TABLET 2 Tablet ORAL DAILY Comments: Last Taken: 10/18/15 Time: 9:00 AM Tamsulosin Hydrochloride (Flomax) 0.4 MG CAP.ER.24H 1 Capsule ORAL DAILY Comments: CARDURA 1MG PO GIVEN IN HOSPITAL LAST GIVEN 10/17/15 AT 9:00 AM Metoprolol Tartrate (Lopressor) 100 MG TABLET 1 Tablet ORAL TWICE DAILY Comments: LAST DOSE GIVEN 11/25/16 AT 8:00 AM Simvastatin (Zocor) 20 MG TAB 1 Tablet ORAL Every night Comments: LIPITOR GIVEN IN HOSPITAL LAST DOSE TAKEN 10/17/15 AT 5:30 PM Multivitamin (Multiple Vitamins) 1 EACH TABLET 1 Tablet ORAL DAILY Comments: Last Taken: 10/18/15 Time: 9:00 AM Vitamin E (E-400) 400 IU SGL 1 Tablet ORAL Every Day Comments: Last Taken: 10/18/15 Time: 9:00 AM Apixaban (Eliquis) 5 MG TABLET 1 Tablet ORAL TWICE DAILY Days = 60 Comments: Last Taken: 10/18/15 Time: 9:00 AM Start taking the following new medications: Amoxicillin (Amoxicillin) 500 MG TABLET 500 Milligram ORAL THREE TIMES DAILY Days = 4 No Refills Comments: NOT GIVEN WHILE HOSPITALIZED Clotrimazole (Clotrimazole) 1 % CREAM..G. 1 Application On the skin AT BEDTIME Qty = 1 Refills = 1 Comments: LAST DSOE GIVEN 11/24/16 AT 10:00 PM Ciprofloxacin HCl (Cipro) 500 MG TABLET 1 Tablet ORAL TWICE DAILY Days = 4 No Refills Comments: NOT GIVEN WHILE HOSPITALIZED Copies To: DEVORAH DOWNEY,ELDER Dumont
[2016-11-22 20:04] LABS: PTT > 120 SEC (25-37)
[2016-11-22 21:55] VITALS: BP 148/80
[2016-11-23 06:30] VITALS: BP 140/74
[2016-11-23 08:08] LABS: ABSOLUTE BASOPHIL COUNT 0 /CUMM (0.0-0.2); ABSOLUTE EOSINOPHIL COUNT 0.2 /CUMM (0.0-0.7); ABSOLUTE GRANULOCYTE CT 4.3 /CUMM (1.4-6.5); ABSOLUTE LYMPH COUNT 0.9 /CUMM (1.2-3.4); ABSOLUTE MONOCYTE COUNT 0.6 /CUMM (0.10-0.60); BASOPHIL % 0.4 % (0.0-2.0); EOSINOPHIL % 3.6 % (0-5); GRANULOCYTE % 71.7 % (42.2-75.2); HEMATOCRIT 36.4 % (42-52); MEAN CORPUSCULAR HGB 28.9 PG (27.0-31.0); MEAN CORPUSCULAR HGB CONC 32.7 G/DL (33.0-37.0); MEAN CORPUSCULAR VOLUME 88.3 FL (80.0-94.0); MEAN PLATELET VOLUME 7.2 FL (7.4-10.4); PLATELET COUNT 238 /CUMM (130-400); RBC DISTRIBUTION WIDTH 16.7 % (11.5-14.5); RED BLOOD CELL CT 4.12 /CUMM (4.70-6.10); WHITE BLOOD CELL COUNT 5.9 /CUMM (4.8-10.8)
--- NOTE | 2016-11-23 08:26 | PN- Housestaff ---
Subjective Follow-up For: cellulitis and osteomyelitis Subjective: Saw pt at bedside. No acute overnigh events No complaints. Pt going for debridement this AM. npo Review of Systems Constitutional: Denies: diaphoresis, fever, weakness. Respiratory: Reports: no symptoms. Gastrointestinal: Reports: no symptoms. Genitourinary: Reports: no symptoms. Musculoskeletal: Reports: no symptoms. Skin: Reports: no symptoms. Objective Last 24 Hrs of Vital Signs/I&O Vital Signs Date Time Temp Pulse Resp B/P B/P Pulse O2 O2 Flow FiO2 Mean Ox Delivery Rate 11/23 0630 98.1 60 20 140/74 96 11/22 2155 98.4 66 20 148/80 96 Room Air 11/22 2149 148/80 11/22 1436 97.9 56 20 126/84 96 Room Air 11/22 1055 63 129/69 Intake & Output 11/23 1600 11/23 0800 11/23 0000 Intake Total 100 235.1 Output Total 350 Balance 100 -114.9 Intake, IV 100 115.1 Intake, Oral 0 120 Output, Urine 350 Physical Exam General Appearance: Alert, Oriented X3, Cooperative, No Acute Distress Skin: RLE and LLE chronic skin chagnes. RLE wrapped in bandages, di not unwrap HEENT: Atraumatic, PERRLA, EOMI Neck: Supple Cardiovascular: Regular Rate, Normal S1, Normal S2 Lungs: Clear to Auscultation Abdomen: Soft, No Tenderness Neurological: Normal Gait, Normal Speech Extremities: RLE in bandages, extrimity foul smelling. Chronic staisi changes visible in hoffman. Assessment/Plan Assessment: This is a 76 yo male with PMH hypertension, hyperlipidemia, obesity, atrial fibrillation on Eliquis, BPH, CAD, Obesity, chronic venous insufficiency with chronic venous ulcers, and recurrent cellulitis of his right lower extremity who presented to the ED with CC of worsening wound on the RLE. Pt managed inpatient for non-healing ulcers and a concern for osteo. Possible debridement on 2016. TIB/FIB X-ray: IMPRESSION: No acute osseous abnormality. Multifocal degenerative changes as described above. There is a soft tissue abnormality overlying the medial malleolus and medial distal tibia consistent with soft tissue wound. Subjacent tibial cortex is intact without evidence of erosion, destruction, or periosteal reaction. If there is further clinical concern for osteomyelitis, consider MRI. Curvilinear metallic foreign body seen within the medial soft tissues at the level of the mid to distal tibia. This could represent a radiopaque foreign body or sequelae of prior surgery or procedure. PLAN Cellulitis of RLE with R/O osteomyelitis: Pt has non healing ulcers in setting of chronic venous insufficiency. No hx diabetes. Infection has been wrosening and failed outpt management. Has hx of MRSA/pseudomonas. Debridement with Dr. Corral tentatively on 11/23/2016. Doppler negative for any abnormality. See Xray above. Pt can't have MRI 2/2 stimulator placed in back. WBC at 5.9. * follow blood cultures * IV Unasyn 3g q6 (DAY4) * elevate leg * wound dressing * f/u podiatry consult * f/u ID consult * KIA of interdigital spaces * Clotrimazole of interdigitial webspaces Hx. of atrial fibrillation on Elequis: Chronic and stable. * Held eliquis * cont' Heparin in anticipation of surgery Hx. of hypertension, hyperlipidemia: Chronic and stable. * Con't home reg Hx. of BPH: Chronic and stable. * Con't home reg Pain pathway Heart healthy diet, NPO starting midnight for possible surgery in the morning DVT PPX. Eliquis Full code Problem List: 1. Chronic wound of extremity Pain Ratin Pain Location: none Pain Goal: Remain pain free Pain Plan: current reg Tomorrow's Labs & Rationales: cbc bep
--- NOTE | 2016-11-23 09:04 | PN- Att Addend ---
Attending Addendum Attending Brief Note Patient has minimal right foot pain and is currently nothing by mouth awaiting for debridement General Appearance: Alert, No Acute Distress Skin: Grossly normal HEENT: PEERLA Neck: Supple, No JVD Cardiovascular: Regular Rate, Normal S1, Normal S2, No Murmurs Lungs: Clear to Auscultation, Normal Air Movement Abdomen: Normal Bowel Sounds, Soft, No Tenderness Neurological: Normal Speech, Strength at 5/5 X4 Ext, Cranial Nerves 3-12 NL, Reflexes 2+ Extremities: Right foot wound dressing Vascular: Normal Pulses Assessment Patient is currently awaiting for debridement and deep cultures. Currently on Unasyn and further decision regarding choice and duration of antibiotics pending over cultures and Dr. Abraham impression. Plan Continue Unasyn Follow OR cultures Continue other meds Check weekly ESR Current Medications Sig/Maria Teresa Start time Last Medication Dose Route Stop Time Status Admin Acetaminophen 650 MG Q6P PRN 11/20 1315 AC PO Ampicillin Sodium/ 3,000 MG Q6 11/20 1800 AC 11/23 Sulbactam Sodium IV 0529 Sodium Chloride 100 ML Atorvastatin Calcium 10 MG 1700 11/20 1700 AC 11/22 PO 1827 Clotrimazole 1 DANY AT BEDTIME 11/20 2200 AC 11/22 TOP 2151 Furosemide 80 MG DAILY 11/21 1000 AC 11/22 PO 1055 Heparin Sodium 5,700 UNIT 1032 11/22 1032 DC 11/22 (Porcine) IV 11/22 1033 1050 Heparin Sodium 25,000 UNIT Q24H 11/20 1345 DC 11/22 (Porcine) IV 11/23 0000 1052 Sodium Chloride 500 ML Metoprolol Tartrate 100 MG BID 11/20 2200 AC 11/22 PO 2149 Multivitamins 1 TAB DAILY 11/21 1000 AC 11/22 Therapeutic PO 1055 Oxycodone/ 1 TAB Q6P PRN 11/20 1315 AC Acetaminophen PO Oxycodone/ 2 TAB Q6P PRN 11/20 1315 AC Acetaminophen PO Tamsulosin HCl 0.4 MG DAILY 11/21 1000 AC 11/22 PO 1055 Vitamin E 400 IU DAILY 11/21 1000 AC 11/22 PO 1055 Laboratory Tests 11/23 11/22 0634 1708 Coagulation APTT (25 - 37 SEC) > 120 *H Hematology CBC w Diff NO MAN DIFF REQ WBC (4.8 - 10.8 /CUMM) 5.9 RBC (4.70 - 6.10 /CUMM) 4.12 L Hgb (14.0 - 18.0 G/DL) 11.9 L Hct (42 - 52 %) 36.4 L MCV (80.0 - 94.0 FL) 88.3 MCH (27.0 - 31.0 PG) 28.9 RDW (11.5 - 14.5 %) 16.7 H Plt Count (130 - 400 /CUMM) 238 MPV (7.4 - 10.4 FL) 7.2 L Gran % (42.2 - 75.2 %) 71.7 Lymphocytes % (20.5 - 51.1 %) 14.4 L Monocytes % (1.7 - 9.3 %) 9.9 H Eosinophils % (0 - 5 %) 3.6 Basophils % (0.0 - 2.0 %) 0.4 Absolute Granulocytes (1.4 - 6.5 /CUMM) 4.3 Absolute Lymphocytes (1.2 - 3.4 /CUMM) 0.9 L Absolute Monocytes (0.10 - 0.60 /CUMM) 0.6 Absolute Eosinophils (0.0 - 0.7 /CUMM) 0.2 Absolute Basophils (0.0 - 0.2 /CUMM) 0 PUBS MCHC (33.0 - 37.0 G/DL) 32.7 L / 0905 Chemistry Sodium (137 - 145 mmol/L) 139 Potassium (3.5 - 5.1 mmol/L) 4.0 Chloride (98 - 107 mmol/L) 101 Carbon Dioxide (22 - 30 mmol/L) 29 Anion Gap (5 - 16) 9 BUN (9 - 20 mg/dL) 16 Creatinine (0.7 - 1.2 mg/dL) 0.9 Estimated GFR (>60 ml/min) > 60 BUN/Creatinine Ratio (7 - 25 %) 17.8 Coagulation APTT (25 - 37 SEC) 47 H Hematology CBC w Diff NO MAN DIFF REQ WBC (4.8 - 10.8 /CUMM) 6.7 RBC (4.70 - 6.10 /CUMM) 4.18 L Hgb (14.0 - 18.0 G/DL) 12.2 L Hct (42 - 52 %) 37.0 L MCV (80.0 - 94.0 FL) 88.3 MCH (27.0 - 31.0 PG) 29.1 RDW (11.5 - 14.5 %) 16.4 H Plt Count (130 - 400 /CUMM) 261 MPV (7.4 - 10.4 FL) 7.0 L Gran % (42.2 - 75.2 %) 75.2 Lymphocytes % (20.5 - 51.1 %) 12.5 L Monocytes % (1.7 - 9.3 %) 8.2 Eosinophils % (0 - 5 %) 3.5 Basophils % (0.0 - 2.0 %) 0.6 Absolute Granulocytes (1.4 - 6.5 /CUMM) 5.0 Absolute Lymphocytes (1.2 - 3.4 /CUMM) 0.8 L Absolute Monocytes (0.10 - 0.60 /CUMM) 0.5 Absolute Eosinophils (0.0 - 0.7 /CUMM) 0.2 Absolute Basophils (0.0 - 0.2 /CUMM) 0 PUBS MCHC (33.0 - 37.0 G/DL) 33.0 Vital Signs Date Time Temp Pulse Resp B/P B/P Pulse O2 O2 Flow FiO2 Mean Ox Delivery Rate 11/23 0630 98.1 60 20 140/74 96 11/22 2155 98.4 66 20 148/80 96 Room Air 11/22 2149 148/80 11/22 1436 97.9 56 20 126/84 96 Room Air 11/22 1055 63 129/69
--- NOTE | 2016-11-23 12:45 | NUR ---
NURSING NOTE: PATIENT LEFT FLOOR VIA STRETCHER WITH DISTRIBUTION FOR OR. PATIENT SCRUBBED, VOIDED, ALL JEWELRY/GLASSES/WATCH/DENTURES REMOVED AND LEFT AT BEDSIDE. VSS. ALL PAPERWORK PLACED IN PATIENT'S CHART. OR CHECKLIST COMPLETED. STAMPER PLACED WITH CHART. PATIENT NPO SINCE MIDNIGHT. WILL AWAIT RETURN.
--- NOTE | 2016-11-23 13:46 | PN- Infect Dx ---
Subjective Subjective: Afebrile. He has some discomfort in the right foot. Objective Last 24 Hrs of Vital Signs/I&O Vital Signs Date Time Temp Pulse Resp B/P B/P Pulse O2 O2 Flow FiO2 Mean Ox Delivery Rate 11/23 0906 140/82 11/23 0904 140/82 11/23 0630 98.1 60 20 140/74 96 11/22 2155 98.4 66 20 148/80 96 Room Air 11/22 2149 148/80 11/22 1436 97.9 56 20 126/84 96 Room Air Intake & Output 11/23 1600 11/23 0800 11/23 0000 Intake Total 100 235.1 Output Total 350 Balance 100 -114.9 Intake, IV 100 115.1 Intake, Oral 0 120 Output, Urine 350 Physical Exam Other Physical Findings: He appears comfortable in no acute distress Extremities right foot dressing intact Results Last 24 Hours of Lab Results: Laboratory Tests 11/23 11/22 0634 1708 Coagulation APTT (25 - 37 SEC) > 120 *H Hematology CBC w Diff NO MAN DIFF REQ WBC (4.8 - 10.8 /CUMM) 5.9 RBC (4.70 - 6.10 /CUMM) 4.12 L Hgb (14.0 - 18.0 G/DL) 11.9 L Hct (42 - 52 %) 36.4 L MCV (80.0 - 94.0 FL) 88.3 MCH (27.0 - 31.0 PG) 28.9 RDW (11.5 - 14.5 %) 16.7 H Plt Count (130 - 400 /CUMM) 238 MPV (7.4 - 10.4 FL) 7.2 L Gran % (42.2 - 75.2 %) 71.7 Lymphocytes % (20.5 - 51.1 %) 14.4 L Monocytes % (1.7 - 9.3 %) 9.9 H Eosinophils % (0 - 5 %) 3.6 Basophils % (0.0 - 2.0 %) 0.4 Absolute Granulocytes (1.4 - 6.5 /CUMM) 4.3 Absolute Lymphocytes (1.2 - 3.4 /CUMM) 0.9 L Absolute Monocytes (0.10 - 0.60 /CUMM) 0.6 Absolute Eosinophils (0.0 - 0.7 /CUMM) 0.2 Absolute Basophils (0.0 - 0.2 /CUMM) 0 PUBS MCHC (33.0 - 37.0 G/DL) 32.7 L Last 24 Hours of Charly Results: Blood cultures November 20 negative Assessment/Plan Impression: Stable, with temperatures and white blood cell count remaining normal on Unasyn Day 3 of treatment for infected venous stasis ulcers of the right foot, with severe maceration of the toes, possibly in part due to a fungal superinfection. He is scheduled for debridement of the foot later today. Suggestion: 1. Await debridement of the right foot later today 2. Continue Unasyn
--- NOTE | 2016-11-23 14:45 | Operative Report ---
Operative/Inv Procedure Report Surgery Date: 11/23/16 Name of Procedure: 1 Open incision and drainage deep to the deep fascia with exposure of the tendon and tendon sheath right ankle 2 Intra-operative administration of ankle block anesthesia 3 Excisional debridement Pre-Operative Diagnosis: 1 Open, necrotic wound right ankle Post-Operative Diagnosis: The same Estimated Blood Loss: less than 50ml Surgeon/Typewriter Repairer: ELIZABETH AGUILAR DPM Anesthesia: moderate sedation, block Operative/Procedure Note Note: After obtaining informed consent, the patient was brought to the operating room and placed on the operating table in the supine position. The patient was then securely fastened to the operating table with a safety belt. After administration of IV sedation, 10cc of 0.5% marcaine plain was infiltrated about the right ankle. The right foot and ankle within scrubbed prepped and draped in usual aseptic manner. Attention directed to the right ankle where 2 large full- thickness necrotic wounds were noted both medially and laterally. The medial lesion was noted to measure 6 cm x 6 cm. The lateral lesion was noted to measure 8 cm x 4 cm. A 15 blade was utilized sharply revised skin margins both medially and laterally. He dissection was then carried down deep to the fashion with exposure of the flexor tendon and tendon sheath multiple sites, both proximally and distally. All necrotic nonviable infected tissue sharply evacuated from the wound bed. The wounds were then irrigated with 3 L of normal sterile saline fissure 50,000 units of bacitracin. A culture was then harvested from soft tissue specimen about the ankle and foot. The medial and lateral wounds were dressed with Xeroform and Kaltostat rope was placed about the interspaces of the digits. This was followed by the application of 3 layer compression. The patient was noted to tolerate both procedure and anesthesia well and the patient was transported from the operating room. To recovery with vital signs stable best assess intact all digits right foot.
--- NOTE | 2016-11-23 15:10 | NUR ---
NURSING NOTE: PATIENT RETURNED TO FLOOR VIA STRETCHER WITH DISTRIBUTION FROM OR. PATIENT FOOT WRAPPED IN NEW BANDAGE AFTER SURGICAL INTERVENTION. JAVIER CDI. PATIENT STATES HE HAS NO PAIN AT THIS TIME. A/OX3 AT BASELINE. VSS. NEW ORDER IN PLACE TO RESUME DIET AND ANTICOAGULANTS. WILL CONTINUE TO MONITOR.
[2016-11-23 16:01] VITALS: BP 118/68
[2016-11-23 21:54] VITALS: BP 132/78
[2016-11-24 06:28] VITALS: BP 120/82
[2016-11-24 07:45] LABS: ABSOLUTE BASOPHIL COUNT 0 /CUMM (0.0-0.2); ABSOLUTE EOSINOPHIL COUNT 0.2 /CUMM (0.0-0.7); ABSOLUTE GRANULOCYTE CT 3.6 /CUMM (1.4-6.5); ABSOLUTE LYMPH COUNT 0.8 /CUMM (1.2-3.4); ABSOLUTE MONOCYTE COUNT 0.6 /CUMM (0.10-0.60); BASOPHIL % 0.6 % (0.0-2.0); GRANULOCYTE % 69.6 % (42.2-75.2); HEMATOCRIT 35.9 % (42-52); MEAN CORPUSCULAR HGB 28.6 PG (27.0-31.0); MEAN CORPUSCULAR HGB CONC 32.5 G/DL (33.0-37.0); MEAN CORPUSCULAR VOLUME 88.1 FL (80.0-94.0); MEAN PLATELET VOLUME 7.3 FL (7.4-10.4); PLATELET COUNT 233 /CUMM (130-400); RBC DISTRIBUTION WIDTH 16.4 % (11.5-14.5); RED BLOOD CELL CT 4.08 /CUMM (4.70-6.10); WHITE BLOOD CELL COUNT 5.2 /CUMM (4.8-10.8)
--- NOTE | 2016-11-24 08:22 | PN- Housestaff ---
Subjective Follow-up For: cellulitis Subjective: Pt went for debridement yesterday. Minimal blood loss; tolerated procedure well. This AM has no complaints. Has resumed regular diet and PO anti-coagulation for a.fib. No acute overnight events or complaints. If pt will not require shelter antibiotics/PICC he will be d/c today with treatment for cellulitis with close f/u with Dr. Corral. If lt. abx are warranted then plan for PICC, antibiotics, home care, Review of Systems Constitutional: Reports: no symptoms. Denies: chills, fever, malaise, weakness. EENTM: Reports: no symptoms. Cardiovascular: Denies: chest pain, orthopena, palpitations. Respiratory: Reports: no symptoms. Gastrointestinal: Reports: no symptoms. Genitourinary: Reports: no symptoms. Musculoskeletal: Denies: joint pain, muscle pain. Skin: Reports: no symptoms. Objective Last 24 Hrs of Vital Signs/I&O Vital Signs Date Time Temp Pulse Resp B/P B/P Pulse O2 O2 Flow FiO2 Mean Ox Delivery Rate 11/24 0528 98.6 55 20 120/82 94 11/23 2158 54 132/78 11/23 2154 98.4 54 18 132/78 94 Room Air 11/23 1601 98.0 57 18 118/68 99 Room Air 11/23 0906 140/82 11/23 0904 140/82 Intake & Output 11/24 1600 11/24 0800 11/24 0000 Intake Total 240 Output Total 450 100 Balance -450 140 Intake, Oral 240 Number 0 Bowel Movements Output, Urine 450 100 Physical Exam General Appearance: Alert, Oriented X3, Cooperative, No Acute Distress Skin: RLE.Wrapped in bandages cannot assess foot. LLE with chronic changes up to hoffman HEENT: Atraumatic, PERRLA, EOMI, Mucous Membr. moist/pink Neck: Supple Cardiovascular: Regular Rate, Normal S1, Normal S2, No Murmurs Lungs: Normal Air Movement Abdomen: Soft, No Tenderness Extremities: RLE in bandages; almost to knee . Did not unwrap, bandages look clean with no drainage. Current Medications: Current Medications Sig/Maria Teresa Start time Last Medication Dose Route Stop Time Status Admin Acetaminophen 650 MG Q6P PRN 11/20 1315 AC PO Ampicillin Sodium/ 3,000 MG Q6 11/20 1800 AC 11/24 Sulbactam Sodium IV 0645 Sodium Chloride 100 ML Apixaban 5 MG BID 11/23 2199 AC 11/23 PO 2157 Atorvastatin Calcium 10 MG 1700 11/20 1700 AC 11/23 PO 1725 Clotrimazole 1 DANY AT BEDTIME 11/20 2199 AC 11/22 TOP 2151 Fentanyl Citrate 100 MCG .STK-MED ONE 11/23 1310 DC IM 11/23 1311 Furosemide 80 MG DAILY 11/21 1000 AC 11/23 PO 0904 Metoprolol Tartrate 100 MG BID 11/20 220 AC 11/23 PO 2158 Multivitamins 1 TAB DAILY 11/21 1000 AC 11/23 Therapeutic PO 0904 Oxycodone/ 1 TAB Q6P PRN 11/20 1315 AC Acetaminophen PO Oxycodone/ 2 TAB Q6P PRN 11/20 1315 AC Acetaminophen PO Patient Medication 1 ED .STK-MED ONE 11/23 1343 DC Teaching ED 11/23 1344 Tamsulosin HCl 0.4 MG DAILY 11/21 1000 AC 11/23 PO 0904 Vitamin E 400 IU DAILY 11/21 1000 AC 11/23 PO 0903 Last 24 Hrs of Lab/Charly Results Last 24 Hrs of Labs/Mics: Laboratory Tests 11/24/16 0630: Anion Gap 8, Estimated GFR > 60, BUN/Creatinine Ratio 20.0, CBC w Diff NO MAN DIFF REQ, RBC 4.08 L, MCV 88.1, MCH 28.6, RDW 16.4 H, MPV 7.3 L, Gran % 69.6, Lymphocytes % 15.2 L, Monocytes % 10.6 H, Eosinophils % 4.0, Basophils % 0.6, Absolute Granulocytes 3.6, Absolute Lymphocytes 0.8 L, Absolute Monocytes 0.6, Absolute Eosinophils 0.2, Absolute Basophils 0, PUBS MCHC 32.5 L Microbiology 11/23 133 EXTREMITIE: Fungal Culture - RECD 11/23 1334 EXTREMITIE: Gross Specimen Examination - RECD 11/23 1334 EXTREMITIE: Gram Stain - RECD Assessment/Plan Assessment: This is a 76 yo male with PMH hypertension, hyperlipidemia, obesity, atrial fibrillation on Eliquis, BPH, CAD, Obesity, chronic venous insufficiency with chronic venous ulcers, and recurrent cellulitis of his right lower extremity who presented to the ED with CC of worsening wound on the RLE. Pt managed inpatient for non-healing ulcers and a concern for osteo. Possible debridement on 2016. PLAN Cellulitis of RLE with R/O osteomyelitis: Pt has non healing ulcers in setting of chronic venous insufficiency. No hx diabetes. Infection has been wrosening and failed outpt management. Has hx of MRSA/pseudomonas. Debridement with Dr. Corral on 11/23/2016, with debridement of tendons and excisional debridiment. Doppler negative for any abnormality.Xray initially showed some bony changes. Pt can't have MRI 2/2 stimulator placed in back. WBC negative. * follow blood cultures * IV Unasyn 3g q6 (DAY5)--> switch antibiotics today per ID. Meropenem (day 1). * elevate leg * wound dressing * f/u podiatry consult * f/u ID consult * Clotrimazole of interdigitial webspaces Hx. of atrial fibrillation on Eliquis: Chronic and stable. * Restarted eliquis on 11/23/2016; previously was on Heparin in anticipation of debridement. Hx. of hypertension, hyperlipidemia: Chronic and stable. * Con't home reg Hx. of BPH: Chronic and stable. * Con't home reg Pain pathway Heart healthy diet, NPO starting midnight for possible surgery in the morning DVT PPX. Eliquis Full code Problem List: 1. Chronic wound of extremity 2. Stasis dermatitis Pain Ratin Pain Location: none Pain Goal: Remain pain free Pain Plan: none Tomorrow's Labs & Rationales: none
--- NOTE | 2016-11-24 09:31 | PN- Att Addend ---
Attending Addendum Attending Brief Note Patient has minimal right foot pain General Appearance: Alert, No Acute Distress Skin: Grossly normal HEENT: PEERLA Neck: Supple, No JVD Cardiovascular: Regular Rate, Normal S1, Normal S2, No Murmurs Lungs: Clear to Auscultation, Normal Air Movement Abdomen: Normal Bowel Sounds, Soft, No Tenderness Neurological: Normal Speech, Strength at 5/5 X4 Ext, Cranial Nerves 3-12 NL, Reflexes 2+ Extremities: Right foot wound dressing Vascular: Normal Pulses Assessment Patient is status post day 1 right foot debridement and deep cultures. There is no mentioning of osteomyelitis or bone cultures sent. Currently on Unasyn and further decision regarding choice and duration of antibiotics pending over cultures. Plan Continue Unasyn Follow OR cultures Continue other meds Check weekly ESR Current Medications Sig/Maria Teresa Start time Last Medication Dose Route Stop Time Status Admin Acetaminophen 650 MG Q6P PRN 11/20 1315 AC PO Ampicillin Sodium/ 3,000 MG Q6 11/20 1800 AC 11/24 Sulbactam Sodium IV 0645 Sodium Chloride 100 ML Apixaban 5 MG BID 11/23 2200 AC 11/23 PO 2157 Atorvastatin Calcium 10 MG 1700 11/20 1700 AC 11/23 PO 1725 Clotrimazole 1 DANY AT BEDTIME 11/20 2200 AC 11/22 TOP 2151 Fentanyl Citrate 100 MCG .STK-MED ONE 11/23 1310 DC IM 11/23 1311 Furosemide 80 MG DAILY 11/21 1000 AC 11/23 PO 0904 Metoprolol Tartrate 100 MG BID 11/20 2200 AC 11/23 PO 2158 Multivitamins 1 TAB DAILY 11/21 1000 AC 11/23 Therapeutic PO 0904 Oxycodone/ 1 TAB Q6P PRN 11/20 1315 AC Acetaminophen PO Oxycodone/ 2 TAB Q6P PRN 11/20 1315 AC Acetaminophen PO Patient Medication 1 ED .STK-MED ONE 11/23 1343 DC Teaching ED 11/23 1344 Tamsulosin HCl 0.4 MG DAILY 11/21 1000 AC 11/23 PO 0904 Vitamin E 400 IU DAILY 11/21 1000 AC 11/23 PO 0903 Laboratory Tests 11/24 0630 Chemistry Sodium (137 - 145 mmol/L) 139 Potassium (3.5 - 5.1 mmol/L) 4.2 Chloride (98 - 107 mmol/L) 101 Carbon Dioxide (22 - 30 mmol/L) 31 H Anion Gap (5 - 16) 8 BUN (9 - 20 mg/dL) 18 Creatinine (0.7 - 1.2 mg/dL) 0.9 Estimated GFR (>60 ml/min) > 60 BUN/Creatinine Ratio (7 - 25 %) 20.0 Hematology CBC w Diff NO MAN DIFF REQ WBC (4.8 - 10.8 /CUMM) 5.2 RBC (4.70 - 6.10 /CUMM) 4.08 L Hgb (14.0 - 18.0 G/DL) 11.7 L Hct (42 - 52 %) 35.9 L MCV (80.0 - 94.0 FL) 88.1 MCH (27.0 - 31.0 PG) 28.6 RDW (11.5 - 14.5 %) 16.4 H Plt Count (130 - 400 /CUMM) 233 MPV (7.4 - 10.4 FL) 7.3 L Gran % (42.2 - 75.2 %) 69.6 Lymphocytes % (20.5 - 51.1 %) 15.2 L Monocytes % (1.7 - 9.3 %) 10.6 H Eosinophils % (0 - 5 %) 4.0 Basophils % (0.0 - 2.0 %) 0.6 Absolute Granulocytes (1.4 - 6.5 /CUMM) 3.6 Absolute Lymphocytes (1.2 - 3.4 /CUMM) 0.8 L Absolute Monocytes (0.10 - 0.60 /CUMM) 0.6 Absolute Eosinophils (0.0 - 0.7 /CUMM) 0.2 Absolute Basophils (0.0 - 0.2 /CUMM) 0 PUBS MCHC (33.0 - 37.0 G/DL) 32.5 L Vital Signs Date Time Temp Pulse Resp B/P B/P Pulse O2 O2 Flow FiO2 Mean Ox Delivery Rate 11/24 0628 98.6 55 20 120/82 94 11/23 2157 54 132/78 11/234 98.4 54 18 132/78 94 Room Air 11/23 1601 98.0 57 18 118/68 99 Room Air
--- NOTE | 2016-11-24 11:26 | PN- Infect Dx ---
Subjective Subjective: Afebrile without complaints Objective Last 24 Hrs of Vital Signs/I&O Vital Signs Date Time Temp Pulse Resp B/P B/P Pulse O2 O2 Flow FiO2 Mean Ox Delivery Rate 11/24 1035 58 112/60 11/24 1035 58 112/60 11/24 0628 98.6 55 20 120/82 94 11/23 2158 54 132/78 11/23 2154 98.4 54 18 132/78 94 Room Air 11/23 1601 98.0 57 18 118/68 99 Room Air Intake & Output 11/24 1600 11/24 0800 11/24 0000 Intake Total 240 Output Total 450 100 Balance -450 140 Intake, Oral 240 Number 0 Bowel Movements Output, Urine 450 100 Physical Exam Other Physical Findings: He appears comfortable in no acute distress Extremities right foot dressing intact Results Last 24 Hours of Lab Results: Laboratory Tests 11/24 0630 Chemistry Sodium (137 - 145 mmol/L) 139 Potassium (3.5 - 5.1 mmol/L) 4.2 Chloride (98 - 107 mmol/L) 101 Carbon Dioxide (22 - 30 mmol/L) 31 H Anion Gap (5 - 16) 8 BUN (9 - 20 mg/dL) 18 Creatinine (0.7 - 1.2 mg/dL) 0.9 Estimated GFR (>60 ml/min) > 60 BUN/Creatinine Ratio (7 - 25 %) 20.0 Hematology CBC w Diff NO MAN DIFF REQ WBC (4.8 - 10.8 /CUMM) 5.2 RBC (4.70 - 6.10 /CUMM) 4.08 L Hgb (14.0 - 18.0 G/DL) 11.7 L Hct (42 - 52 %) 35.9 L MCV (80.0 - 94.0 FL) 88.1 MCH (27.0 - 31.0 PG) 28.6 RDW (11.5 - 14.5 %) 16.4 H Plt Count (130 - 400 /CUMM) 233 MPV (7.4 - 10.4 FL) 7.3 L Gran % (42.2 - 75.2 %) 69.6 Lymphocytes % (20.5 - 51.1 %) 15.2 L Monocytes % (1.7 - 9.3 %) 10.6 H Eosinophils % (0 - 5 %) 4.0 Basophils % (0.0 - 2.0 %) 0.6 Absolute Granulocytes (1.4 - 6.5 /CUMM) 3.6 Absolute Lymphocytes (1.2 - 3.4 /CUMM) 0.8 L Absolute Monocytes (0.10 - 0.60 /CUMM) 0.6 Absolute Eosinophils (0.0 - 0.7 /CUMM) 0.2 Absolute Basophils (0.0 - 0.2 /CUMM) 0 PUBS MCHC (33.0 - 37.0 G/DL) 32.5 L Last 24 Hours of Charly Results: OR culture right foot positive for gram-positive cocci and 2 types of non- lactose fermenting gram-negative rods Assessment/Plan Impression: Stable status post I&D and excisional debridement of the soft tissues of the right foot yesterday for what is felt to be infected venous stasis ulcers and cellulitis, with no clinical suspicion for underlying osteomyelitis. He remains afebrile with a normal white blood cell count on Unasyn but, with his preliminary OR cultures revealing non-lactose fermenting gram negative rods, feel his antibiotics will need to be adjusted. Suggestion: 1. Follow-up OR cultures 2. Discontinue Unasyn 3. Begin Meropenem 1 g IV every 8 hours pending above
[2016-11-24 14:45] VITALS: BP 116/80
--- NOTE | 2016-11-24 15:00 | NUR ---
DR. VELAZQUEZ NOTIFIED RN THAT WE MAY GIVE THE PT HER LOVENOX AND ASA THAT WERE HELD EARLIER TODAY. TO REPORT OFF TO ONCOMING RN. WILL CONT TO MONITOR.
--- NOTE | 2016-11-24 15:15 | Patient Discharge Instructions ---
Discharge Instructions General Discharge Information You were seen/treated for: Cellulitis You had these procedures: debridement of the RLE. Special Instructions: PLEASE CHANGE THE DRESSING ON THE FOOT EVERYDAY PLEASE CHANGE THE DRESSING ON THE LEG EVERY 2-3 DAYS Diet Continue normal diet: Yes Activity Full Activity/No Limits: No Activity Self Limited: Yes Acute Coronary Syndrome Inclusion Criteria At DC or during hospital stay patient has or had the following: ACS DIAGNOSIS No Discharge Core Measures Meds if any: Prescribed or Continued at Discharge Meds if any: NOT Prescribed or Continued at Discharge Congestive Heart Failure Inclusion Criteria At DC or during hospital stay patient has or had the following: CHF DIAGNOSIS No Discharge Core Measures Meds if any: Prescribed or Continued at Discharge Meds if any: NOT Prescribed or Continued at Discharge Cerebrovascular accident Inclusion Criteria At DC or during hospital stay patient has or had the following: CVA/TIA Diagnosis No Discharge Core Measures Meds if any: Prescribed or Continued at Discharge Meds if any: NOT Prescribed or Continued at Discharge Venous thromboembolism Inclusion Criteria VTE Diagnosis No VTE Type NONE VTE Confirmed by (Test) NONE Discharge Core Measures - Per Current guidelines, there needs to be overlap - treatment for the first 5 days of Warfarin therapy. - If discharged on Warfarin prior to 5 days of - overlap therapy, the patient will need to be - assessed for post discharge needs including - *Post discharge parental anticoagulation - *Warfarin and/or parental anticoagulation education - *Follow up date to check INR post discharge At least 5 days overlap therapy as Inpatient No Meds if any: Prescribed or Continued at Discharge Note: Overlap Therapy is Warfarin and Anticoagulant Meds if any: NOT Prescribed or Continued at Discharge
--- NOTE | 2016-11-24 15:30 | NUR ---
LATE ENTRY: DR. AGUILAR UP TO FLOOR. RN INQUIRED MD ABOUT PT'S DSG. PER MD, I&D WAS DONE YESTERDAY AND DSG IS GOOD FOR 48 HRS. DSG INTACT. WILL CONT TO MONITOR.
--- NOTE | 2016-11-24 17:57 | NUR ---
ALERT AND ORIENTED X 3. VITAL SIGNS STABLE. DENIES CHEST PAIN. + PULSES ON ROOM AIR. DSG TO R FOOT IS INTACT. R FOOT ELEVATED. NO DISCOMFORT NOTED PATIENT RESTING COMFORTABLY AT THIS TIME. WILL CONTINUE TO MONITOR
[2016-11-24 21:25] VITALS: BP 145/90
[2016-11-25 06:55] VITALS: BP 120/90
--- NOTE | 2016-11-25 09:42 | PN- Att Addend ---
Attending Addendum Attending Brief Note Patient has minimal right foot pain General Appearance: Alert, No Acute Distress Skin: Grossly normal HEENT: PEERLA Neck: Supple, No JVD Cardiovascular: Regular Rate, Normal S1, Normal S2, No Murmurs Lungs: Clear to Auscultation, Normal Air Movement Abdomen: Normal Bowel Sounds, Soft, No Tenderness Neurological: Normal Speech, Strength at 5/5 X4 Ext, Cranial Nerves 3-12 NL, Reflexes 2+ Extremities: Right foot wound dressing Vascular: Normal Pulses Assessment Patient is status post day 2 right foot debridement and deep cultures. There is no mentioning of osteomyelitis or bone cultures sent. Gram-negative rods and gram-positive cocci currently on meropenem awaiting for identification. Plan Continue meropenem pending cultures Follow OR cultures Continue other meds Current Medications Sig/Maria Teresa Start time Last Medication Dose Route Stop Time Status Admin Acetaminophen 650 MG Q6P PRN 11/20 1315 AC PO Ampicillin Sodium/ 3,000 MG Q6 11/20 1800 DC 11/24 Sulbactam Sodium IV 0645 Sodium Chloride 100 ML Apixaban 5 MG BID 11/23 2200 AC 11/25 PO 0819 Atorvastatin Calcium 10 MG 1700 11/20 1700 AC 11/24 PO 1642 Clotrimazole 1 DANY AT BEDTIME 11/20 2200 AC 11/24 TOP 2133 Furosemide 80 MG DAILY 11/21 1000 AC 11/25 PO 0819 Meropenem 1 GM IQ8 11/24 1600 AC 11/25 IV 0818 Metoprolol Tartrate 100 MG BID 11/20 2200 AC 11/25 PO 0819 Multivitamins 1 TAB DAILY 11/21 1000 AC 11/25 Therapeutic PO 0819 Oxycodone/ 1 TAB Q6P PRN 11/20 1315 AC Acetaminophen PO Oxycodone/ 2 TAB Q6P PRN 11/20 1315 AC Acetaminophen PO Tamsulosin HCl 0.4 MG DAILY 11/21 1000 AC 11/25 PO 0819 Vitamin E 400 IU DAILY 11/21 1000 AC 11/25 PO 0819 Vital Signs Date Time Temp Pulse Resp B/P B/P Pulse O2 O2 Flow FiO2 Mean Ox Delivery Rate 11/25 0819 62 120/90 11/25 0819 62 120/90 11/25 0655 98.9 62 20 120/90 94 Room Air 11/243 60 145/90 04/25 2125 98.2 60 20 145/90 95 Room Air 11/24 1445 97.4 57 20 116/80 94 Room Air 11/24 1035 58 112/60 11/24 1035 58 112/60
--- NOTE | 2016-11-25 10:43 | PN- Housestaff ---
Subjective Follow-up For: Wound debridement Cellulitis Subjective: Saw patient at bedside this a.m. He stated he was feeling much better today. Pain under control. No acute overnight events. Patient remained afebrile. Patient likely discharge today Review of Systems Constitutional: Denies: chills, fever. EENTM: Reports: no symptoms. Cardiovascular: Denies: chest pain, palpitations. Respiratory: Reports: no symptoms. Gastrointestinal: Reports: no symptoms. Musculoskeletal: Reports: joint pain, muscle pain, muscle stiffness. Skin: Reports: change in skin color, lesions. Objective Last 24 Hrs of Vital Signs/I&O Vital Signs Date Time Temp Pulse Resp B/P B/P Pulse O2 O2 Flow FiO2 Mean Ox Delivery Rate 11/25 0819 62 120/90 11/25 0819 62 120/90 11/25 0655 98.9 62 20 120/90 94 Room Air 11/24 2133 60 145/90 11/24 2125 98.2 60 20 145/90 95 Room Air 11/24 1445 97.4 57 20 116/80 94 Room Air Intake & Output 11/25 1600 11/25 0800 11/25 0000 Intake Total 360 Output Total Balance 360 Intake, IV 120 Intake, Oral 240 Number 0 Bowel Movements Patient 142.428 kg Weight Physical Exam General Appearance: Alert, Oriented X3, Cooperative, No Acute Distress Skin: chronic venous stasis changes in bilateral lower extremities. Right lower extremity wrapped in bandages almost up to knee. Did not unwrap bandages. HEENT: Atraumatic, PERRLA, EOMI, Mucous Membr. moist/pink Neck: Supple Cardiovascular: irregularly irregular Lungs: Normal Air Movement Abdomen: Soft, No Tenderness Extremities: see above Current Medications: Current Medications Sig/Maria Teresa Start time Last Medication Dose Route Stop Time Status Admin Acetaminophen 650 MG Q6P PRN 11/20 1315 AC PO Apixaban 5 MG BID 11/230 AC 11/25 PO 0819 Atorvastatin Calcium 10 MG 1700 11/20 1700 AC 11/24 PO 1642 Clotrimazole 1 DANY AT BEDTIME 11/20 2199 AC 11/24 TOP 2133 Furosemide 80 MG DAILY 11/21 1000 AC 11/25 PO 0819 Meropenem 1 GM IQ8 11/24 1600 AC 11/25 IV 0818 Metoprolol Tartrate 100 MG BID 11/20 2199 AC 11/25 PO 0819 Multivitamins 1 TAB DAILY 11/21 1000 AC 11/25 Therapeutic PO 0819 Oxycodone/ 1 TAB Q6P PRN 11/20 1315 AC Acetaminophen PO Oxycodone/ 2 TAB Q6P PRN 11/20 1315 AC Acetaminophen PO Tamsulosin HCl 0.4 MG DAILY 11/21 1000 AC 11/25 PO 0819 Vitamin E 400 IU DAILY 11/21 1000 AC 11/25 PO 0819 Assessment/Plan Assessment: This is a 76 yo male with PMH hypertension, hyperlipidemia, obesity, atrial fibrillation on Eliquis, BPH, CAD, Obesity, chronic venous insufficiency with chronic venous ulcers, and recurrent cellulitis of his right lower extremity who presented to the ED with CC of worsening wound on the RLE. Pt managed inpatient for non-healing ulcers. Patient went for right lower extremity wound debridement on 11/23/2016; this is postop day 2. PLAN Cellulitis of RLE with R/O osteomyelitis: Pt has non healing ulcers in setting of chronic venous insufficiency. No hx diabetes. Infection has been wrosening and failed outpt management. Has hx of MRSA/pseudomonas. Excisional Debridement with Dr. Corral on 11/23/2016. Admission doppler negative for any abnormality. Xray initially showed some bony changes. Pt can't have MRI 2/2 stimulator placed in back. Currently no suspicion for osteomyelitis. WBC negative. * follow blood cultures- NGTD * Wound cultures growing pansensitive Pseudomonas aeruginosa and a group B strep. * IV Unasyn 3g q6 (DAY5)--> switch antibiotics today per ID. Meropenem (day 2). Upon discharge from hospital patient will be prescribed amoxicillin and ciprofloxacin for coverage of strep and Pseudomonas on the outpatient basis. He will require close follow-up with PCP in podiatry. Total duration of anticipated therapy will likely be 7-10 days post debridement. * elevate leg * wound dressing-patient has nursing arranged for home * f/u podiatry consult * f/u ID consult * Clotrimazole of interdigitial webspaces Hx. of atrial fibrillation on Eliquis: Chronic and stable. * Restarted eliquis on 11/23/2016; previously was on Heparin in anticipation of debridement. Hx. of hypertension, hyperlipidemia: Chronic and stable. * Con't home reg Hx. of BPH: Chronic and stable. * Con't home reg Pain pathway Heart healthy diet, NPO starting midnight for possible surgery in the morning DVT PPX. Eliquis Full code Problem List: 1. Atrial fibrillation 2. Chronic wound of extremity Pain Ratin Pain Location: none Pain Goal: Remain pain free Pain Plan: none Tomorrow's Labs & Rationales: none DVT/Prophylaxis: pharmacological
--- NOTE | 2016-11-25 13:01 | PN- Infect Dx ---
Subjective Subjective: Afebrile without complaints Objective Last 24 Hrs of Vital Signs/I&O Vital Signs Date Time Temp Pulse Resp B/P B/P Pulse O2 O2 Flow FiO2 Mean Ox Delivery Rate 11/25 0819 62 120/90 11/25 0819 62 120/90 11/25 0655 98.9 62 20 120/90 94 Room Air 11/24 2133 60 145/90 11/24 2125 98.2 60 20 145/90 95 Room Air 11/24 1445 97.4 57 20 116/80 94 Room Air Intake & Output 11/25 1600 11/25 0800 11/25 0000 Intake Total 360 Output Total Balance 360 Intake, IV 120 Intake, Oral 240 Number 0 Bowel Movements Physical Exam Other Physical Findings: He appears comfortable in no acute distress Extremities right foot dressing intact Results Last 24 Hours of Lab Results: No labs from today Last 24 Hours of Charly Results: OR culture right foot November 23 positive for Pseudomonas sensitive to all antibiotics tested and Group C strep Assessment/Plan Impression: Stable status post I&D and excisional debridement of the soft tissues of the right foot 2 days ago for infected venous stasis ulcers and cellulitis, with no clinical suspicion for underlying osteomyelitis. He remains afebrile with white blood cell count normal now on Meropenem for Pseudomonas and Group C strep isolated from the OR culture. Suggestion: 1. Continue Meropenem, but upon discharge, can change to Amoxicillin 500 mg po every 8 hours and Ciprofloxacin 500 mg po every 12 hours to complete a 7 day course of treatment
[2016-11-25] MEDS ORDERED: CIPRO500 M1 PO (13:33)
[2016-11-25] MEDS ORDERED: AMOXICILLIN500 M3 PO ×2 (13:35→13:36)
[2016-11-25] MEDS ORDERED: CLOTRIMAZOLE15 GM TOP (14:29)
[2016-11-25 15:12] VITALS: BP 112/80
== END 2016-11-25 15:30 | disposition home health service (06) | DRG 571 ==
LOC: ERH 09:38 → ERHI 13:01 → 2NB 13:01 → ENRESERV 13:06 → CANRESERV 13:06 → ENRESERV 13:47 → 2NB 15:05 → ENPENDDIS 11-25 14:17 → 2NB 11-25 15:30
PROVIDERS: Internal Medicine Hematology & Oncology; Physician Assistant; Student in an Organized Health Care Education/Training Program; ADMIT Internal Medicine
PROC: 0J9Q0ZZ Drainage of Right Foot Subcutaneous Tissue and Fascia, Open Approach (ICD-10-PCS; principal; 2016-11-23)
PROC: 0JBQ0ZZ Excision of Right Foot Subcutaneous Tissue and Fascia, Open Approach (ICD-10-PCS; 2016-11-23)
DX: L03.115 Cellulitis of right lower limb (principal); L97.919 Non-pressure chronic ulcer of unspecified part of right lower leg with unspecified severity; I48.91 Unspecified atrial fibrillation; I83.218 Varicose veins of right lower extremity with both ulcer of other part of lower extremity and inflammation; Z68.41 Body mass index [BMI] 40.0-44.9, adult; E66.01 Morbid (severe) obesity due to excess calories; Z79.01 Long term (current) use of anticoagulants; I10 Essential (primary) hypertension; E78.5 Hyperlipidemia, unspecified; I25.10 Atherosclerotic heart disease of native coronary artery without angina pectoris; N40.0 Benign prostatic hyperplasia without lower urinary tract symptoms
CPT/HCPCS: 2NBP; 87070; 87075; 36415; 73590-RT; 73610-RT; 73630-RT; 82436; 87040; 87147; 96365; 96366; 96375; A4649; J0713; J1644; J2001; J2185; J3370; J7040

== ENCOUNTER 2017-12-13 12:34 | Inpatient (IN) | payer OTHER ==
[~2017-12-13] VITALS: Ht 188 cm; Wt 134.5 kg
[~2017-12-13 12:34] MED LIST changes: +AMOXICILLIN500 M3 PO; +CIPRO500 M1 PO; +CLOTRIMAZOLE15 GM TOP; -E-400400 IU PO; -FLOMAX(MONOGRA0.4 MG PO; +FLOMAX0.4 M1 PO; +FUROSEMIDE40 M1 PO; -FUROSEMIDE40 MG PO; -SIMVASTATIN20 MG PO; +VITAMIN E400 UNI4 PO; +ZOCOR20 M1 PO
--- NOTE | 2017-12-13 12:59 | ED UPPER/LOWER EXTREMITY COMPL ---
History of Present Illness General Chief Complaint: Lower Extremity Problems Stated Complaint: SIB BY DR AGUILAR FOR LEFT LEG ?CELLULITIS Source: patient, old records Exam Limitations: no limitations Vital Signs & Intake/Output Vital Signs & Intake/Output Vital Signs Date Time Temp Pulse Resp B/P B/P Pulse O2 O2 Flow FiO2 Mean Ox Delivery Rate 12/13 1744 99.2 60 18 118/58 98 Room Air 12/13 1611 99.6 64 24 115/56 97 Room Air 12/13 1318 100.2 62 24 119/57 96 Room Air 12/13 1250 100.7 63 15 101/66 93 Room Air Room Air Allergies Coded Allergies: solifenacin (From VESICARE) (EYES SWELL 12/13/17) Reconcile Medications Apixaban (Eliquis) 2.5 MG TABLET 1 TAB PO BID AFIB (Reported) Furosemide 40 MG TABLET 2 TAB PO DAILY WATER RETENTION (Reported) Metoprolol Tartrate (Lopressor) 100 MG TABLET 1 TAB PO BID BP (Reported) Multivitamin (Daily Multiple Vitamin) 1 EACH TABLET 0.5 TAB PO BID VITAMIN SUPPORT (Reported) Simvastatin (Zocor*) 20 MG TABLET 1 TAB PO QPM CHOLESTEROL (Reported) Tamsulosin HCl (Flomax) 0.4 MG CAP.ER.24H 1 CAP PO QPM bph (Reported) Vitamin E Acetate (Vitamin E) 400 UNIT CAPSULE 1 CAP PO DAILY SUPPLEMENT ( Reported) Triage Note: PT SENT TO ED BY DR. AGUILAR FOR ADMISSION FOR ANTIBIOTICS FOR LLE CELLULITIS. PT REPORTS REDNESS AND FEVERS X 1 DAY. SEEN AT WOUND CENTER AND SENT TO ED. FEBRILE IN TRIAGE 100.7. Triage Nurses Notes Reviewed? yes Onset: Gradual Duration: constant Timing: recent history Severity: severe Severity Numbers: 7 HPI: Patient is a 77-year-old male with a past medical history of atrial fibrillation ON ELIQUIS, CAD, overactive bladder with a bladder stimulator in place chronic venous insufficiency to right lower extremity and recurrent lower extremity cellulitis who presents emergency room with a 12 hour history of gradual onset of progressively worsening concerns of sialitis to left lower extremity of swelling pain redness and fevers Patient was evaluated today at wound care BY Dr. Aguilar in which he states that the right lower extremity wounds is unchanged however he advised patient to be admitted for consistent cellulitis (Michel Le) Past History Travel History Traveled to [place] past 21 day No Medical History Any Pertinent Medical History? see below for history Neurological: NONE Cardiovascular: AFIB, CAD, chronic venous insuff, hypertension, hyperlipidemia, PVD Respiratory: pneumonia Gastrointestinal: NONE Hepatic: NONE Renal: benign prost hyperplasia Musculoskeletal: NONE Psychiatric: NONE Endocrine: obesity Blood Disorders: NONE Cancer(s): NONE B[employer] WORK[employer] HOLLOW HANDLE/Reproductive: NONE Other Medical Hx: Recurrent cellulitis of the right leg History of MRSA: Yes History of VRE: No History of CDIFF: No Influenza Vaccine: 05/02/16 Surgical History Surgical History: status post venous stripping Psychosocial History Who do you live with Spouse Services at Home None What is your primary language Beninese Tobacco Use: Never used ETOH Use: denies use Illicit Drug Use: denies illicit drug use Family History Family History, If Any: Relation not specified for: *No pertinent family history Hx Contributory? No (Michel Le) Review of Systems Review of Systems Constitutional: Reports: see HPI, fever. EENTM: Reports: no symptoms. Respiratory: Reports: no symptoms. Cardiovascular: Reports: no symptoms. Gastrointestinal/Abdominal: Reports: no symptoms. Genitourinary: Reports: no symptoms. Musculoskeletal: Reports: see HPI. Skin: Reports: see HPI. Neurological/Psychological: Reports: no symptoms. Hematologic/Endocrine: Reports: no symptoms. Immunological: Reports: no symptoms. All Other Systems: Reviewed and Negative (Michel Le) Physical Exam Physical Exam General Appearance: no apparent distress, alert, comfortable Head: atraumatic Eyes: Bilateral: normal appearance. Ears, Nose, Throat: hearing grossly normal Neck: normal inspection Cardiovascular/Respiratory: no respiratory distress Peripheral Pulses: 2+ dorsalis pedis (R), 2+ dorsalis pedis (L) Neurologic/Tendon: normal sensation, normal motor functions, normal tendon functions, responds to pain, no evidence tendon injury, no pulse deficit Diagram Legs Front/Back 1) Noted circumferential erythema warmth and mild point tenderness dermatomes intact pedal pulses +2 (Michel Le) Progress Differential Diagnosis: arterial insufficiency, compartment syndrome, contusion, dislocation, DVT, fracture, gout, septic arthritis, sprain, tendon injury Plan of Care: Orders Procedure Date/time Status Heart Healthy Diet 12/14 B Active Wound Care/Dressing 12/13 173 Active PHYSICIAN CONSULT 12/13 1730 Active Elevate 12/13 1729 Active Pathway - chart 12/13 1650 Active House Staff 12/13 1650 Active Patient Data 12/13 1650 Active Code Status 12/13 1650 Active Patient Data 12/13 1641 Active ED Holding Orders 12/13 1600 Active Admit to inpatient 12/13 1600 Active Vital Signs 12/13 1600 Active Code Status 12/13 1600 Complete BLOOD CULTURE 12/13 1338 Active LACTIC ACID 12/13 1338 Complete COMPREHENSIVE METABOLIC PANEL 12/13 1338 Complete CBC WITHOUT DIFFERENTIAL 12/13 1338 Complete EKG 12/13 1338 Active Intake & Output 12/13 1304 Active PHYSICIAN CONSULT 12/13 UNK Active Current Medications Sig/Maria Teresa Start time Last Medication Dose Stop Time Status Admin Atorvastatin Calcium 10 MG 1700 12/14 1700 AC (Lipitor) Furosemide 80 MG DAILY 12/14 0900 AC (Lasix) Apixaban 2.5 MG BID 12/13 2100 AC (Eliquis) Metoprolol Tartrate 100 MG BID 12/13 2100 AC (Lopressor) Tamsulosin HCl 0.4 MG QPM 12/13 2100 AC (Flomax) Ampicillin Sodium/ 3,000 MG Q6 12/13 1800 AC Sulbactam Sodium (Unasyn) Sodium Chloride 100 ML (Normal Saline 0.9%) Laboratory Tests 12/13/17 1638: Lactic Acid Cancelled 12/13/17 1410: Anion Gap 9, Estimated GFR 45 L, BUN/Creatinine Ratio 27.3 H, Glucose 99, Lactic Acid 1.2, Calcium 8.0 L, Total Bilirubin 1.0, AST 26, ALT 17 L, Alkaline Phosphatase 75, Total Protein 7.7, Albumin 3.5, Globulin 4.2, Albumin/ Globulin Ratio 0.8 L, CBC w Diff NO MAN DIFF REQ, RBC 4.23 L, MCV 86.6, MCH 28.7, MCHC 33.2, RDW 15.8 H, MPV 7.2 L, Gran % 93.4 H, Lymphocytes % 2.3 L, Monocytes % 4.2, Eosinophils % 0, Basophils % 0.1, Absolute Granulocytes 14.8 H , Absolute Lymphocytes 0.4 L, Absolute Monocytes 0.7 H, Absolute Eosinophils 0 , Absolute Basophils 0 Microbiology 12/13 1454 BLOOD: Blood Culture - RECD 12/13 1410 BLOOD: Blood Culture - RECD Patient upon initial presentation was resting calmly a bedside patient is noted to be febrile and leukocytosis however there is noted concerns of left lower extremity cellulitis. Ultrasound was obtained concerns of dvt. no concerns of severe sepsis or septic shock upon admission. dr. haider discussed admission with dr. coronel. discussed admission with patient who agrees and has no questions Diagnostic Imaging: Viewed by Me: Ultrasound. Radiology Impression: no acute abnormality Initial ED EK BPM, NOTED BLADDER STIMULATOR SPIKE Comments: PATIENT: GLADYS RAMIREZ PRESENT AGE: 77 PATIENT ACCOUNT NO: [id number] : 38 LOCATION: [facility] ORDERING PHYSICIAN: Michel FISHER SERVICE DATE: 12/13/17 EXAM TYPE: US - US-UNILATERAL VENOUS DOPPLER EXAMINATION: US TRIPLEX LOWER EXTREMITY, LEFT CLINICAL INFORMATION: Left lower extremity swelling and pain. COMPARISON: Ultrasound study 11/20/2016. TECHNIQUE: Color-flow triplex imaging with spectral analysis and compression Doppler were performed on the left lower extremity. FINDINGS: Respiratory variation, normal compression and augmented flow are noted throughout the lower extremity. The visualized common femoral vein, superficial femoral vein, profunda femoral vein, popliteal vein and midcalf peroneal and posterior tibial venous segments show no evidence of deep venous thrombosis. There are no focal fluid collections. There are prominent lymph nodes in the left groin, measuring up to 3.2 cm. IMPRESSION: 1. Normal triplex scan without evidence of deep venous thrombosis involving the left lower extremity. 2. There are prominent lymph nodes in the left groin, measuring up to 3.2 cm. 3. There are no focal fluid collections. DICTATED BY: Buzz Dennis MD DATE/TIME DICTATED:12/13/171537 OUTPATIENT DIETITIAN:RAYNE (Michel Le) Departure Departure Disposition: STILL A PATIENT Condition: Stable Clinical Impression Primary Impression: Cellulitis of left leg Referrals: Bartolo Coronel MD (PCP/Family) Departure Forms: Customer Survey General Discharge Information (Michel Le) Admission Note Spoke With: Bartolo Coronel MD Documentation of Exam: Documentation of any treatments & extenuating circumstances including Concerns Regarding Discharge (functional status, medication knowledge or non-compliance, living conditions, etc.) that warrant an admission rather than observation: [ Patient was sent in for admission for IV antibiotics for cellulitis. Patient has a fever and elevated white blood cell count. Patient will need IV antibiotics and a wound consult. PA/RADIOTELEGRAPHIST Co-Sign Statement Statement: ED Attending supervision documentation- [X] I saw and evaluated the patient. I have also reviewed all the pertinent lab results and diagnostic results. I agree with the findings and the plan of care as documented in the PA's/RADIOTELEGRAPHIST's documentation. [X] I have reviewed the ED Record and agree with the PA's/RADIOTELEGRAPHIST's documentation. [] Additions or exceptions (if any) to the PAs/RADIOTELEGRAPHIST's note and plan are summarized below: [SEE ABOVE NOTE] (Yue DOWNEY,Sathya Bunn)
[2017-12-13] MEDS ORDERED: DAILY MULTIPLE1 EACH PO (13:18)
[2017-12-13] MEDS ORDERED: ELIQUIS2.5 M1 PO (13:20)
[2017-12-13 14:20] LABS: ABSOLUTE BASOPHIL COUNT 0 /CUMM (0.0-0.2); ABSOLUTE EOSINOPHIL COUNT 0 /CUMM (0.0-0.7); ABSOLUTE GRANULOCYTE CT 14.8 /CUMM (1.4-6.5); ABSOLUTE LYMPH COUNT 0.4 /CUMM (1.2-3.4); ABSOLUTE MONOCYTE COUNT 0.7 /CUMM (0.10-0.60); BASOPHIL % 0.1 % (0.0-2.0); EOSINOPHIL % 0 % (0-5); HEMATOCRIT 36.6 % (42-52); MEAN CORPUSCULAR HGB 28.7 PG (27.0-31.0); MEAN CORPUSCULAR HGB CONC 33.2 G/DL (33.0-37.0); MEAN CORPUSCULAR VOLUME 86.6 FL (80.0-94.0); MEAN PLATELET VOLUME 7.2 FL (7.4-10.4); RBC DISTRIBUTION WIDTH 15.8 % (11.5-14.5); RED BLOOD CELL CT 4.23 /CUMM (4.70-6.10); WHITE BLOOD CELL COUNT 15.8 /CUMM (4.8-10.8)
[2017-12-13 14:37] LABS: PLATELET COUNT 239 /CUMM (130-400)
[2017-12-13 14:38] LABS: GRANULOCYTE % 93.4 % (42.2-75.2)
--- NOTE | 2017-12-13 15:45 | ULTRASOUND REPORT ---
EXAMINATION: US TRIPLEX LOWER EXTREMITY, LEFT CLINICAL INFORMATION: Left lower extremity swelling and pain. COMPARISON: Ultrasound study 11/20/2016. TECHNIQUE: Color-flow triplex imaging with spectral analysis and compression Doppler were performed on the left lower extremity. FINDINGS: Respiratory variation, normal compression and augmented flow are noted throughout the lower extremity. The visualized common femoral vein, superficial femoral vein, profunda femoral vein, popliteal vein and midcalf peroneal and posterior tibial venous segments show no evidence of deep venous thrombosis. There are no focal fluid collections. There are prominent lymph nodes in the left groin, measuring up to 3.2 cm. IMPRESSION: 1. Normal triplex scan without evidence of deep venous thrombosis involving the left lower extremity. 2. There are prominent lymph nodes in the left groin, measuring up to 3.2 cm. 3. There are no focal fluid collections.
--- NOTE | 2017-12-13 16:49 | History & Physical ---
Justino Leone 12/13/17 1648: General Information and HPI History of Present Illness: Mr. Everett is a 68-year-old man with a history of atrial fibrillation on apixaban, coronary artery disease, chronic venous insufficiency, with recurrent cellulitis of the right leg SIB Dr. Corral for suspected LLE cellulitis. Patient reports yesterday his left leg felt sore and had left ankle pain. Last night he took his temperature and recorded a fever of 100.5. This morning he noticed an increased amount of swelling in his left leg. His nurse at his living facility took his temperature today that was ~98. He also had one episode of watery brown stools. At baseline he walks with a cane. He denies trauma, chills, nausea, vomiting, abdominal pain, tick bite, urinary incontinence, dysuria, frequency, hematochezia or melena. In the ED patient was febrile with a Tmax of 100.7, slightly hypotensive and satting well on room air. He was given 1 dose of IV Unasyn. Allergies/Medications Allergies: Coded Allergies: solifenacin (From [facility]) (EYES SWELL 12/13/17) Home Med list Apixaban (Eliquis) 2.5 MG TABLET 1 TAB PO BID AFIB (Reported) Furosemide 40 MG TABLET 2 TAB PO DAILY WATER RETENTION (Reported) Metoprolol Tartrate (Lopressor) 100 MG TABLET 1 TAB PO BID BP (Reported) Multivitamin (Daily Multiple Vitamin) 1 EACH TABLET 0.5 TAB PO BID VITAMIN SUPPORT (Reported) Simvastatin (Zocor*) 20 MG TABLET 1 TAB PO QPM CHOLESTEROL (Reported) Tamsulosin HCl (Flomax) 0.4 MG CAP.ER.24H 1 CAP PO QPM bph (Reported) Vitamin E Acetate (Vitamin E) 400 UNIT CAPSULE 1 CAP PO DAILY SUPPLEMENT ( Reported) Past History Travel History Traveled to [place] past 21 day No Medical History Neurological: NONE Cardiovascular: AFIB, CAD, chronic venous insuff, hypertension, hyperlipidemia, PVD Respiratory: pneumonia Gastrointestinal: NONE Hepatic: NONE Renal: benign prost hyperplasia Musculoskeletal: NONE Psychiatric: NONE Endocrine: obesity Blood Disorders: NONE Cancer(s): NONE CONSTRUCTION SPECIALIST/Reproductive: NONE Other Medical Hx: Recurrent cellulitis of the right leg History of MRSA: Yes History of VRE: No History of CDIFF: No Influenza Vaccine: 05/02/16 Surgical History Surgical History: status post venous stripping Past Family/Social History Family History Relations & Conditions if any Relation not specified for: *No pertinent family history Psychosocial History Services at Home: None ETOH Use: denies use Illicit Drug Use: denies illicit drug use Review of Systems Review of Systems Constitutional: Reports: see HPI. Exam & Diagnostic Data Last 24 Hrs of Vital Signs/I&O Vital Signs Date Time Temp Pulse Resp B/P B/P Pulse O2 O2 Flow FiO2 Mean Ox Delivery Rate 12/13 1611 99.6 64 24 115/56 97 Room Air 12/13 1318 100.2 62 24 119/57 96 Room Air 12/13 1250 100.7 63 15 101/66 93 Room Air Room Air Intake & Output 12/13 1600 12/13 0800 12/13 0000 Intake Total 0 Output Total 0 Balance 0 Intake, Oral 0 Output, Urine 0 Patient 320 lb Weight Weight Reported by Patient Measurement Method Physical Exam General Appearance Alert, Oriented X3, Cooperative HEENT Atraumatic, PERRLA, EOMI, Mucous Membr. moist/pink Neck Supple, No JVD, No thryomegaly Cardiovascular Regular Rate, Normal S1, Normal S2 Lungs Clear to Auscultation, Normal Air Movement Abdomen Normal Bowel Sounds, Soft, No Tenderness Extremities RLE ulcerated areas lesion to the lateral aspect, skin and toe scaling, skin discoloration LLE warmth, skin erythema without drainage Last 24 Hrs of Labs/Charly: Laboratory Tests 12/13/17 1638: Lactic Acid Cancelled 12/13/17 1410: Anion Gap 9, Estimated GFR 45 L, BUN/Creatinine Ratio 27.3 H, Glucose 99, Lactic Acid 1.2, Calcium 8.0 L, Total Bilirubin 1.0, AST 26, ALT 17 L, Alkaline Phosphatase 75, Total Protein 7.7, Albumin 3.5, Globulin 4.2, Albumin/ Globulin Ratio 0.8 L, CBC w Diff NO MAN DIFF REQ, RBC 4.23 L, MCV 86.6, MCH 28.7, MCHC 33.2, RDW 15.8 H, MPV 7.2 L, Gran % 93.4 H, Lymphocytes % 2.3 L, Monocytes % 4.2, Eosinophils % 0, Basophils % 0.1, Absolute Granulocytes 14.8 H , Absolute Lymphocytes 0.4 L, Absolute Monocytes 0.7 H, Absolute Eosinophils 0 , Absolute Basophils 0 Microbiology 12/13 1454 BLOOD: Blood Culture - RECD 12/13 1410 BLOOD: Blood Culture - RECD Diagnostic Data Other Results 12/13/17-1343 US-UNILATERAL VENOUS DOPPLER IMPRESSION: 1. Normal triplex scan without evidence of deep venous thrombosis involving the left lower extremity. 2. There are prominent lymph nodes in the left groin, measuring up to 3.2 cm. 3. There are no focal fluid collections. Assessment/Plan Assessment: Mr. Everett is a 68-year-old man with a history of atrial fibrillation, coronary artery disease, chronic venous insufficiency, with recurrent cellulitis Problem list: #LLE Cellulitis #ADALGISA Plan: Admit to general med for further evaluation and management Discontinue IV Unasyn Start Meropenem to cover MRSA and Pseudomonas NS IVF Blood cultures 2 Monitor renal function (baseline Cr 1) Resume home medications: Apixaban, Metoprolol, statin, Tamsulosin Wound consult Diet: Heart healthy DVT ppx: sc heparin Code: Full As Ranked By This Provider Problem List: 1. Cellulitis of left leg Core Measures/Misc (04/18) Acute Coronary Syndrome ACS Diagnosis: No Congestive Heart Failure Congestive Heart Failure Diagnosis No Cerebrovascular Accident CVA/TIA Diagnosis: No VTE (View Protocol) VTE Risk Factors Age>40 No Mechanical VTE Prophylaxis d/t N/A MechProphylax Ordered No VTE Pharm Prophylaxis d/t NA PharmProphylax ordered Sepsis (View protocol) Sepsis Present: No Racquel King MD 12/13/17 1723: Core Measures/Misc (04/18) VTE (View Protocol) VTE Risk Factors Age>40 No Mechanical VTE Prophylaxis d/t Other (cannt do b/o PVD) No VTE Pharm Prophylaxis d/t NA PharmProphylax ordered (on anticoag.) Comment: patient is already on anticoag Sepsis (View protocol) Sepsis Present: Yes (temp and leucocytosis) Resident Review Statement Resident Statement: examined this patient, discussed with technology risk intern, agreed with technology risk intern, discussed with family Other Findings: Patient is 77-year-old male, with past medical history of hypertension, hyperlipidemia, morbid obesity, atrial fibrillation on Eliquis, peripheral vascular disease -chronic venous insufficiency with chronic venous ulcer needed stent in the right leg presented for chief complaints of left lower leg erythema , fever, 1 episode of diarrhea. ED course - Vital signs at the time of admission -temperature 100.7, pulse 63, respiratory rate 15, blood pressure 101/66, SPO2 93% on room air. On examination -patient was conscious, cooperative, making whistling sound while breathing. Bilateral lower leg erythema, right more than the left leg. There was chronic skin changes. Left leg was having redness, warmth, tenderness extending from great toe to upper one third of the thigh, peripheral pulses were feeble, ankle movements were intact. On right leg there was chronic ulcers covered by dressing, erythema, very feeble pulses, ankle movement was intact. Bilateral groin area was having redness and foul-smelling secretions. No lymphadenopathy. Bilateral pulses in the hands were intact, heart S1-S2 normal, lungs bilaterally clear. Blood workup showed -WBC 15.8, RBC 4.23, hemoglobin 12.1, platelet count 239, granulocyte 93.4, lymphocyte 2.3, serum sodium 135, potassium 4.2, chloride 94, carbon carbon DEXA 34, BUN 41, creatinine 1.5, GFR 45, BUN/creatinine 27.3, calcium 8.0, AST 26, ALT 17, alkaline phosphatase 75. Left lower leg venous Doppler study-negative for DVT, lymph node in the left groin was 2.2 cm and there was no fluid collection.. Assessment and plan - Bilateral peripheral vascular disease with history of recurrent cellulitis currently having bilateral lower leg cellulitis, right more than the left - leading to sepsis - Culture in the past was growing strep, Pseudomonas, MRSA. Discussed with Dr. Schafer and according to him patient may have chronicity towards getting MRSA and Pseudomonas. We will stop the Unasyn. * start patient on injection meropenem 1 g IV 8 hourly and follow ID recommendation for further management * Keep leg elevated * Wound care * Follow podiatry care * Follow the blood cultures and wound culture Prerenal ADALGISA - On examination oral mucosa was dry, lungs are clear and no JVD. Blood workup did show BUN/creatinine 41/1.5. His baseline creatinine is 1. * Gentle hydration and watch for signs of fluid overload * Strict intake output charting * Serial monitoring of BUN/creatinine Chronic medical conditions -atrial fibrillation, coronary artery disease, hypertension, hyperlipidemia * We will continue all home medication Diet -heart healthy diet CODE STATUS -full code DVT prophylaxis -patient is already on anticoagulant. Discussed with Dr Quenzel, he advised to continue uasyn, to cover MSSA, he will evaluate for the effect and will decide if any change is needed in future. Hanh DOWNEY,[facility] 12/13/171909: Attending MD Review Statement Attending Statement Attending MD Statement: examined this patient, discuss w/resident/PA/PERL SOFTWARE ENGINEER, agreed w/resident/PA/PERL SOFTWARE ENGINEER, discussed with family, reviewed EMR data (avail), discussed with nursing, discussed with case mgmt, reviewed images, amended to note Attending Assessment/Plan: Full note as above cont abx will follow
[2017-12-13 19:30] VITALS: BP 118/74
[2017-12-13 21:10] VITALS: BP 120/63
[2017-12-14 05:57] VITALS: BP 120/60
--- NOTE | 2017-12-14 07:23 | PN- Housestaff ---
Subjective Follow-up For: LLE cellulitis RLE nonhealing ulcers ADALGISA Subjective: Patient offers no complaints Review of Systems Constitutional: Reports: see HPI. Objective Last 24 Hrs of Vital Signs/I&O Vital Signs Date Time Temp Pulse Resp B/P B/P Pulse O2 O2 Flow FiO2 Mean Ox Delivery Rate 12/14 0905 7 120/76 12/14 0557 98.5 67 20 120/60 95 Room Air 12/13 2115 59 120/63 12/13 2115 59 120/63 12/13 2110 99.1 59 20 120/63 94 Room Air 12/13 1930 98.6 74 20 118/74 95 Room Air 12/13 1744 99.2 60 18 118/58 98 Room Air 12/13 1611 99.6 64 24 115/56 97 Room Air 12/13 1318 100.2 62 24 119/57 96 Room Air 12/13 1250 100.7 63 15 101/66 93 Room Air Room Air Intake & Output 12/14 1600 12/14 0800 12/14 0000 Intake Total 400 150 Output Total 700 Balance -300 150 Intake, IV 400 Intake, Oral 150 Number 1 Bowel Movements Output, Urine 700 Patient 287 lb 293 lb Weight Physical Exam General Appearance: Alert, Oriented X3, Cooperative, No Acute Distress Cardiovascular: Regular Rate, Normal S1, Normal S2 Lungs: Clear to Auscultation, Normal Air Movement Abdomen: Normal Bowel Sounds, Soft, No Tenderness Extremities: LLE skin erythematous, slightly warm without drainage. RLE nonhealing ulcerated wounds to the lateral aspect Current Medications: Current Medications Sig/Maria Teresa Start time Last Medication Dose Route Stop Time Status Admin Ampicillin Sodium/ 3,000 MG Q6 12/13 2359 AC 12/14 Sulbactam Sodium IV 0555 Sodium Chloride 100 ML Ampicillin Sodium/ 3,000 MG Q6 12/13 1800 DC Sulbactam Sodium IV Sodium Chloride 100 ML Ampicillin Sodium/ 0 .STK-MED ONE 12/13 1436 DC Sulbactam Sodium .ROUTE Ampicillin Sodium/ 3,000 MG ONCE ONE 12/13 1415 DC 12/13 Sulbactam Sodium IV 12/13 1444 1455 Sodium Chloride 100 ML Apixaban 2.5 MG BID 12/13 2100 AC 12/14 PO 0905 Atorvastatin Calcium 10 MG 1700 12/14 1700 AC PO Furosemide 80 MG DAILY 12/14 0900 DC 12/14 PO 0905 Meropenem 1 GM IQ8 12/14 0000 CAN IV Metoprolol Tartrate 100 MG BID 12/13 2100 AC 12/14 PO 09 Patient Medication 1 ED ONE ONE 12/14 1000 DC Teaching ED 12/14 1001 Sodium Chloride 1,000 ML Q20H 12/13 1930 AC 12/13 IV 1951 Tamsulosin HCl 0.4 MG QPM 12/13 2100 AC 12/13 PO 2114 Last 24 Hrs of Lab/Charly Results Last 24 Hrs of Labs/Mics: Laboratory Tests 12/13/17 1638: Lactic Acid Cancelled 12/13/17 1410: Anion Gap 9, Estimated GFR 45 L, BUN/Creatinine Ratio 27.3 H, Glucose 99, Lactic Acid 1.2, Calcium 8.0 L, Total Bilirubin 1.0, AST 26, ALT 17 L, Alkaline Phosphatase 75, Total Protein 7.7, Albumin 3.5, Globulin 4.2, Albumin/ Globulin Ratio 0.8 L, CBC w Diff NO MAN DIFF REQ, RBC 4.23 L, MCV 86.6, MCH 28.7, MCHC 33.2, RDW 15.8 H, MPV 7.2 L, Gran % 93.4 H, Lymphocytes % 2.3 L, Monocytes % 4.2, Eosinophils % 0, Basophils % 0.1, Absolute Granulocytes 14.8 H , Absolute Lymphocytes 0.4 L, Absolute Monocytes 0.7 H, Absolute Eosinophils 0 , Absolute Basophils 0 Microbiology 12/13 1454 BLOOD: Blood Culture - RECD 12/13 141 BLOOD: Blood Culture - RECD Assessment/Plan Assessment: Mr. Everett is a 68-year-old man with a history of atrial fibrillation, coronary artery disease, chronic venous insufficiency, with recurrent cellulitis Problem list: #LLE Cellulitis #RLE nonhealing ulcers #ADALGISA Plan: Admit to general med for further evaluation and management Continue IV Unasyn Continue to monitor Cr (baseline Cr 1) Continue home medications: Apixaban, Metoprolol, statin, Tamsulosin Appreciate Wound recommendations Appreciate podiatry recommendations Diet: Heart healthy DVT ppx: sc heparin Code: Full Problem List: 1. Cellulitis of left leg Pain Ratin Pain Location: BLE Pain Goal: Pain 4 or less Pain Plan: Tylenol Tomorrow's Labs & Rationales: CBC, BEP
--- NOTE | 2017-12-14 09:41 | PN- Pulmonary ---
Subjective HPI/Critical Care Issues: DOing a little better Has diarrhea Fatigue Objective Current Medications: Current Medications Sig/Maria Teresa Start time Last Medication Dose Route Stop Time Status Admin Ampicillin Sodium/ 3,000 MG Q6 12/13 2359 AC 12/14 Sulbactam Sodium IV 0555 Sodium Chloride 100 ML Ampicillin Sodium/ 3,000 MG Q6 12/13 1800 DC Sulbactam Sodium IV Sodium Chloride 100 ML Ampicillin Sodium/ 0 .STK-MED ONE 12/13 1436 DC Sulbactam Sodium .ROUTE Ampicillin Sodium/ 3,000 MG ONCE ONE 12/13 1415 DC 12/13 Sulbactam Sodium IV 12/13 1444 1455 Sodium Chloride 100 ML Apixaban 2.5 MG BID 12/13 2100 AC 12/14 PO 0905 Atorvastatin Calcium 10 MG 1700 12/14 1700 AC PO Furosemide 80 MG DAILY 12/14 0900 AC 12/14 PO 0905 Meropenem 1 GM IQ8 12/14 0000 CAN IV Metoprolol Tartrate 100 MG BID 12/13 2100 AC 12/14 PO 0905 Sodium Chloride 1,000 ML Q20H 12/13 1930 AC 12/13 IV 1951 Tamsulosin HCl 0.4 MG QPM 12/13 2100 AC 12/13 PO 211 Vital Signs & I&O Last 24 Hrs of Vitals and I&O: Vital Signs Date Time Temp Pulse Resp B/P B/P Pulse O2 O2 Flow FiO2 Mean Ox Delivery Rate 12/14 0905 7 120/76 12/14 0557 98.5 67 20 120/60 95 Room Air 12/13 211 59 120/63 12/13 2115 59 120/63 12/13 2110 99.1 59 20 120/63 94 Room Air 12/13 1930 98.6 74 20 118/74 95 Room Air 12/13 1744 99.2 60 18 118/58 98 Room Air 12/13 1611 99.6 64 24 115/56 97 Room Air 12/13 1318 100.2 62 24 119/57 96 Room Air 12/13 1250 100.7 63 15 101/66 93 Room Air Room Air Intake & Output 12/14 1600 12/14 0800 12/14 0000 Intake Total 400 150 Output Total 700 Balance -300 150 Intake, IV 400 Intake, Oral 150 Number 1 Bowel Movements Output, Urine 700 Patient 287 lb 293 lb Weight Laboratory Tests 12/13 12/13 1638 1410 Chemistry Sodium (137 - 145 mmol/L) 135 L Potassium (3.5 - 5.1 mmol/L) 4.2 Chloride (98 - 107 mmol/L) 94 L Carbon Dioxide (22 - 30 mmol/L) 32 H Anion Gap (5 - 16) 9 BUN (9 - 20 mg/dL) 41 H Creatinine (0.7 - 1.2 mg/dL) 1.5 H Estimated GFR (>60 ml/min) 45 L BUN/Creatinine Ratio (7 - 25 %) 27.3 H Glucose (65 - 99 mg/dL) 99 Lactic Acid (0.7 - 2.1 mmol/L) Cancelled 1.2 Calcium (8.4 - 10.2 mg/dL) 8.0 L Total Bilirubin (0.2 - 1.3 mg/dL) 1.0 AST (17 - 59 U/L) 26 ALT (21 - 72 U/L) 17 L Alkaline Phosphatase (< 127 U/L) 75 Total Protein (6.3 - 8.2 g/dL) 7.7 Albumin (3.5 - 5.0 g/dL) 3.5 Globulin (1.9 - 4.2 gm/dL) 4.2 Albumin/Globulin Ratio (1.1 - 2.2 %) 0.8 L Hematology CBC w Diff NO MAN DIFF REQ WBC (4.8 - 10.8 /CUMM) 15.8 H RBC (4.70 - 6.10 /CUMM) 4.23 L Hgb (14.0 - 18.0 G/DL) 12.1 L Hct (42 - 52 %) 36.6 L MCV (80.0 - 94.0 FL) 86.6 MCH (27.0 - 31.0 PG) 28.7 MCHC (33.0 - 37.0 G/DL) 33.2 RDW (11.5 - 14.5 %) 15.8 H Plt Count (130 - 400 /CUMM) 239 MPV (7.4 - 10.4 FL) 7.2 L Gran % (42.2 - 75.2 %) 93.4 H Lymphocytes % (20.5 - 51.1 %) 2.3 L Monocytes % (1.7 - 9.3 %) 4.2 Eosinophils % (0 - 5 %) 0 Basophils % (0.0 - 2.0 %) 0.1 Absolute Granulocytes (1.4 - 6.5 /CUMM) 14.8 H Absolute Lymphocytes (1.2 - 3.4 /CUMM) 0.4 L Absolute Monocytes (0.10 - 0.60 /CUMM) 0.7 H Absolute Eosinophils (0.0 - 0.7 /CUMM) 0 Absolute Basophils (0.0 - 0.2 /CUMM) 0 Microbiology Date/Time Procedure - Status Source Growth 12/13 1454 Blood Culture - RECD BLOOD 12/13 1410 Blood Culture - RECD BLOOD Impression/Plan Impression/Plan Impression/Plan: Physical Exam General Appearance Alert, Oriented X3, Cooperative HEENT Atraumatic, PERRLA, EOMI, Mucous Membr. moist/pink Neck Supple, No JVD, No thryomegaly Cardiovascular Regular Rate, Normal S1, Normal S2 Lungs Clear to Auscultation, Normal Air Movement Abdomen Normal Bowel Sounds, Soft, No Tenderness Extremities RLE ulcerated areas lesion to the lateral aspect, skin and toe scaling, skin discoloration LLE warmth, skin erythema without drainage IMPRESSION This is a gentleman with hypertension, hyperlipidemia, morbid obesity, atrial fibrillation on eloquis, hyperlipidemia, chronic venous insufficiency with chronic venous ulcer, prior stent of his vein for chronic venous insufficiency done by vascular surgery, now comes in with * Infected venous foot chronic ulcer with soft tissue infection with prior multiple organisms, ID eval pending rule out osteo * Chronic venous insufficiency * Diarrhea yesterday with no clinical cdiff but needs to be ruled out * ADALGISA with dehydration * HTN, pafib, Hyperlipidemia, BPH stable REC Cont iv abx Ask podiatry to see or to advise for wound care orders COnt current meds Elevate foot and hold diuretics and gentle hydration COnt all meds WIll follow
--- NOTE | 2017-12-14 11:50 | Cons- Infect Disease ---
General Information and HPI Consulting Request Date of Consult: 12/14/17 Requested By: Hanh DOWNEY,Bartolo Dumont Reason for Consult: Cellulitis of the left leg Source of Information: patient, old records History of Present Illness: This is a 77-year-old man with a history of atrial fibrillation, maintained on Eliquis, coronary artery disease, chronic venous insufficiency, with recurrent cellulitis of the right leg and chronic ulcerations of the right foot and leg, last hospitalized 1 year prior to admission, at which time he underwent excisional debridement of both the medial and lateral malleolar ulcers, followed closely by Podiatry as an outpatient, admitted on December 13 after he was referred to the emergency room by Podiatry because of one day of erythema and pain of the left leg associated with a low-grade fever. On admission he was febrile to 100.7. Laboratory data revealed a white blood cell count of 16,000, BUN/ creatinine 41 and 1.5, with normal liver enzymes. Doppler of the left leg was negative. He was begun on Unasyn and has defervesced overnight. This morning he notes decreased pain in the left leg. Allergies/Medications Allergies: Coded Allergies: solifenacin (From VESICARE) (EYES SWELL 12/13/17) Home Med List: Apixaban (Eliquis) 2.5 MG TABLET 1 TAB PO BID AFIB (Reported) Furosemide 40 MG TABLET 2 TAB PO DAILY WATER RETENTION (Reported) Metoprolol Tartrate (Lopressor) 100 MG TABLET 1 TAB PO BID BP (Reported) Multivitamin (Daily Multiple Vitamin) 1 EACH TABLET 0.5 TAB PO BID VITAMIN SUPPORT (Reported) Simvastatin (Zocor*) 20 MG TABLET 1 TAB PO QPM CHOLESTEROL (Reported) Tamsulosin HCl (Flomax) 0.4 MG CAP.ER.24H 1 CAP PO QPM bph (Reported) Vitamin E Acetate (Vitamin E) 400 UNIT CAPSULE 1 CAP PO DAILY SUPPLEMENT ( Reported) Past History Travel History Traveled to [place] past 21 day No Medical History Blood Transfusion Hx: No Neurological: NONE EENT: NONE Cardiovascular: AFIB, CAD, chronic venous insuff, hypertension, hyperlipidemia, PVD Respiratory: pneumonia Gastrointestinal: NONE Hepatic: NONE Renal: benign prost hyperplasia Musculoskeletal: NONE Psychiatric: NONE Endocrine: obesity Blood Disorders: NONE Cancer(s): NONE 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 Home Services at Home: None Smoking Status: Never Smoked ETOH Use: denies use Illicit Drug Use: denies illicit drug use Review of Systems Review of Systems All Other Systems: Reviewed and Negative Exam & Diagnostic Data Last 24 Hrs of Vital Signs/I&O Vital Signs Date Time Temp Pulse Resp B/P B/P Pulse O2 O2 Flow FiO2 Mean Ox Delivery Rate 12/14 0905 7 120/76 12/14 0557 98.5 67 20 120/60 95 Room Air 12/13 2115 59 120/63 12/13 2115 59 120/63 12/13 2110 99.1 59 20 120/63 94 Room Air 12/13 1930 98.6 74 20 118/74 95 Room Air 12/13 1744 99.2 60 18 118/58 98 Room Air 12/13 1611 99.6 64 24 115/56 97 Room Air 12/13 1318 100.2 62 24 119/57 96 Room Air 12/13 1250 100.7 63 15 101/66 93 Room Air Room Air Intake & Output 12/14 1600 12/14 0800 12/14 0000 Intake Total 400 150 Output Total 700 Balance -300 150 Intake, IV 400 Intake, Oral 150 Number 1 Bowel Movements Output, Urine 700 Patient 287 lb 293 lb Weight Physical Exam Other Physical Findings: He is awake and alert in no acute distress. T-max 100.7. Skin reveals no rash. HEENT exam is negative. Neck is supple with no adenopathy. Lungs are clear. Heart regular rhythm with no murmur. Abdomen is obese, soft, nontender with positive bowel sounds. Back no CVA tenderness. Extremities chronic venous stasis changes both lower extremities; left leg with mild erythema and tenderness on the lateral aspect of the left ankle, with no open ulcerations; callus on the dorsal aspect of the left second toe with no surrounding inflammation; decreased pulses of the left foot; right leg with lateral ulcer above the ankle with no surrounding inflammation; multiple ulcerations of the right foot, with diffuse erythema and edema, nontender; decreased pulses of the right foot. Neuro is without focality. Last 24 Hours of Lab Results: Laboratory Tests 12/13 12/13 1638 1410 Chemistry Sodium (137 - 145 mmol/L) 135 L Potassium (3.5 - 5.1 mmol/L) 4.2 Chloride (98 - 107 mmol/L) 94 L Carbon Dioxide (22 - 30 mmol/L) 32 H Anion Gap (5 - 16) 9 BUN (9 - 20 mg/dL) 41 H Creatinine (0.7 - 1.2 mg/dL) 1.5 H Estimated GFR (>60 ml/min) 45 L BUN/Creatinine Ratio (7 - 25 %) 27.3 H Glucose (65 - 99 mg/dL) 99 Lactic Acid (0.7 - 2.1 mmol/L) Cancelled 1.2 Calcium (8.4 - 10.2 mg/dL) 8.0 L Total Bilirubin (0.2 - 1.3 mg/dL) 1.0 AST (17 - 59 U/L) 26 ALT (21 - 72 U/L) 17 L Alkaline Phosphatase (< 127 U/L) 75 Total Protein (6.3 - 8.2 g/dL) 7.7 Albumin (3.5 - 5.0 g/dL) 3.5 Globulin (1.9 - 4.2 gm/dL) 4.2 Albumin/Globulin Ratio (1.1 - 2.2 %) 0.8 L Hematology CBC w Diff NO MAN DIFF REQ WBC (4.8 - 10.8 /CUMM) 15.8 H RBC (4.70 - 6.10 /CUMM) 4.23 L Hgb (14.0 - 18.0 G/DL) 12.1 L Hct (42 - 52 %) 36.6 L MCV (80.0 - 94.0 FL) 86.6 MCH (27.0 - 31.0 PG) 28.7 MCHC (33.0 - 37.0 G/DL) 33.2 RDW (11.5 - 14.5 %) 15.8 H Plt Count (130 - 400 /CUMM) 239 MPV (7.4 - 10.4 FL) 7.2 L Gran % (42.2 - 75.2 %) 93.4 H Lymphocytes % (20.5 - 51.1 %) 2.3 L Monocytes % (1.7 - 9.3 %) 4.2 Eosinophils % (0 - 5 %) 0 Basophils % (0.0 - 2.0 %) 0.1 Absolute Granulocytes (1.4 - 6.5 /CUMM) 14.8 H Absolute Lymphocytes (1.2 - 3.4 /CUMM) 0.4 L Absolute Monocytes (0.10 - 0.60 /CUMM) 0.7 H Absolute Eosinophils (0.0 - 0.7 /CUMM) 0 Absolute Basophils (0.0 - 0.2 /CUMM) 0 Last 24 Hours of Charly Results: Blood cultures 2 December 13 negative Diagnostic Data Recent Imaging Findings: Doppler of the left leg December 13 negative Assessment/Plan Assessment/Plan Impression: This is a 77-year-old man with chronic venous insufficiency, with recurrent cellulitis of the right leg and chronic ulcerations of the right foot and leg, admitted on December 13 with one day of erythema and pain of the left leg associated with a low-grade fever, found on admission to have a low-grade fever with a leukocytosis and begun on empiric antibiotics for a cellulitis of the left leg. He does have mild inflammation of the left leg, with pain and increased erythema reported, which is consistent with a cellulitis. His right foot has chronic inflammation and it is not clear if this has changed recently. His underlying problem appears to be chronic venous insufficiency, and I have a low suspicion for underlying osteomyelitis. He has grown multiple organisms in the past from his leg ulcerations, including MRSA and Pseudomonas, but, as he is stable, feel that he can be continued on the Unasyn. Suggestion: 1. Elevation of the left leg 2. Further management of his right foot and leg wounds per Podiatry 3. Continue Unasyn Consult Acknowledgment - Thank you for your consult request.
[2017-12-14 14:44] VITALS: BP 122/64
[2017-12-14 20:07] VITALS: BP 140/82
[2017-12-15 06:21] VITALS: BP 120/72
--- NOTE | 2017-12-15 07:23 | PN- Housestaff ---
Subjective Follow-up For: LLE cellulitis RLE nonhealing ulcers ADALGISA Subjective: Patient offers no complaints. Denies fever, chills, nausea, vomiting, pain Review of Systems Constitutional: Reports: see HPI. Objective Last 24 Hrs of Vital Signs/I&O Vital Signs Date Time Temp Pulse Resp B/P B/P Pulse O2 O2 Flow FiO2 Mean Ox Delivery Rate 12/15 0819 120/72 12/15 620 98.4 62 18 120/72 93 Room Air 12/15 2043 74 140/82 12/15 2043 74 140/82 12/14 2006 98.5 74 18 140/82 93 Room Air 12/14 144 98.2 68 20 122/64 92 Room Air Intake & Output 12/15 1600 12/15 0800 12/15 0000 Intake Total 880 880 Output Total 495 300 Balance 385 580 Intake, IV 400 400 Intake, Oral 480 480 Number 0 Bowel Movements Output, Urine 495 300 Patient 296 lb Weight Physical Exam General Appearance: Alert, Oriented X3, Cooperative, No Acute Distress Cardiovascular: Regular Rate, Normal S1, Normal S2 Lungs: Clear to Auscultation, Normal Air Movement Abdomen: Normal Bowel Sounds, Soft, No Tenderness Extremities: Mild LLE skin erythema and chronic RLE ulcerative lesions Current Medications: Current Medications Sig/Maria Teresa Start time Last Medication Dose Route Stop Time Status Admin Acetaminophen 325 MG Q4P PRN 12/14 1200 AC PO Ampicillin Sodium/ 3,000 MG Q6 12/13 2359 AC 12/15 Sulbactam Sodium IV 0541 Sodium Chloride 100 ML Apixaban 2.5 MG BID 12/13 2100 AC 12/15 PO 0819 Atorvastatin Calcium 10 MG 1700 12/14 1700 AC 12/14 PO 1723 Metoprolol Tartrate 100 MG BID 12/13 2100 AC 12/15 PO 0819 Sodium Chloride 1,000 ML Q20H 12/13 1930 AC 12/14 IV 1723 Tamsulosin HCl 0.4 MG QPM 12/13 2099 AC 12/14 PO 204 Last 24 Hrs of Lab/Charly Results Last 24 Hrs of Labs/Mics: Laboratory Tests 12/15/17 0617: Anion Gap 9, Estimated GFR > 60, BUN/Creatinine Ratio 30.9 H, Glucose 91, Calcium 7.5 L, Total Bilirubin 0.5, AST 29, ALT 24, Alkaline Phosphatase 68, Total Protein 6.3, Albumin 2.8 L, Globulin 3.5, Albumin/Globulin Ratio 0.8 L, CBC w Diff MAN DIFF ORDERED, RBC 3.61 L, MCV 87.5, MCH 28.9, MCHC 33.0, RDW 16.4 H, MPV 7.5, Gran % 85.1 H, Lymphocytes % 7.1 L, Monocytes % 6.4, Eosinophils % 1.2, Basophils % 0.2, Absolute Granulocytes 5.9, Segmented Neutrophils 80 H, Band Neutrophils 8 H, Absolute Lymphocytes 0.5 L, Lymphocytes 7 L, Monocytes 4, Absolute Monocytes 0.4, Eosinophils 1, Absolute Eosinophils 0.1, Absolute Basophils 0, Platelet Estimate VERIFIED BY SMEAR, Anisocytosis 1+ Microbiology 12/14 1448 STOOL: Clostridium difficile Toxin A & B - COLB Assessment/Plan Assessment: Mr. Everett is a 68-year-old man with a history of atrial fibrillation, coronary artery disease, chronic venous insufficiency, with recurrent cellulitis Problem list: #LLE Cellulitis #RLE nonhealing ulcers #ADALGISA - resolved Plan: Blood cultures shows no growth thus far Continue IV Unasyn, we will transition to Augmentin 875 mg BID to complete a 7 day course of treatment Continue home medications: Apixaban, Metoprolol, statin, Tamsulosin Appreciate Wound/Podiatry recommendations Appreciate ID recommendations Diet: Heart healthy DVT ppx: sc heparin Code: Full Problem List: 1. Cellulitis of left leg Pain Ratin Pain Location: NA Pain Goal: Remain pain free Pain Plan: NA Tomorrow's Labs & Rationales: CBC
[2017-12-15 09:13] LABS: ABSOLUTE BASOPHIL COUNT 0 /CUMM (0.0-0.2); ABSOLUTE EOSINOPHIL COUNT 0.1 /CUMM (0.0-0.7); ABSOLUTE GRANULOCYTE CT 5.9 /CUMM (1.4-6.5); ABSOLUTE LYMPH COUNT 0.5 /CUMM (1.2-3.4); ABSOLUTE MONOCYTE COUNT 0.4 /CUMM (0.10-0.60); BASOPHIL % 0.2 % (0.0-2.0); EOSINOPHIL % 1.2 % (0-5); GRANULOCYTE % 85.1 % (42.2-75.2); MEAN CORPUSCULAR HGB 28.9 PG (27.0-31.0); MEAN CORPUSCULAR VOLUME 87.5 FL (80.0-94.0); MEAN PLATELET VOLUME 7.5 FL (7.4-10.4); PLATELET COUNT 219 /CUMM (130-400); RBC DISTRIBUTION WIDTH 16.4 % (11.5-14.5); RED BLOOD CELL CT 3.61 /CUMM (4.70-6.10)
--- NOTE | 2017-12-15 09:55 | PN- Pulmonary ---
Subjective HPI/Critical Care Issues: Afebrile stable Leg under wrap Objective Current Medications: Current Medications Sig/Maria Teresa Start time Last Medication Dose Route Stop Time Status Admin Acetaminophen 325 MG Q4P PRN 12/14 1200 AC PO Ampicillin Sodium/ 3,000 MG Q6 12/13 2359 AC 12/15 Sulbactam Sodium IV 0541 Sodium Chloride 100 ML Apixaban 2.5 MG BID 12/13 2100 AC 12/15 PO 0819 Atorvastatin Calcium 10 MG 1700 12/14 1700 AC 12/14 PO 1723 Furosemide 80 MG DAILY 12/14 0900 DC 12/14 PO 0905 Metoprolol Tartrate 100 MG BID 12/13 2100 AC 12/15 PO 0819 Patient Medication 1 ED ONE ONE 12/14 1000 DC 12/14 Teaching ED 12/14 1001 1723 Sodium Chloride 1,000 ML Q20H 12/13 1930 AC 12/14 IV 1723 Tamsulosin HCl 0.4 MG QPM 12/13 2100 AC 12/14 PO 2044 Vital Signs & I&O Last 24 Hrs of Vitals and I&O: Vital Signs Date Time Temp Pulse Resp B/P B/P Pulse O2 O2 Flow FiO2 Mean Ox Delivery Rate 12/15 0819 120/72 12/15 0621 98.4 62 18 120/72 93 Room Air 12/15 2043 74 140/82 12/15 2043 74 140/82 12/14 2006 98.5 74 18 140/82 93 Room Air 12/14 144 98.2 68 20 122/64 92 Room Air Intake & Output 12/15 1600 12/15 0800 12/15 0000 Intake Total 880 880 Output Total 495 300 Balance 385 580 Intake, IV 400 400 Intake, Oral 480 480 Number 0 Bowel Movements Output, Urine 495 300 Patient 296 lb Weight Laboratory Tests 12/15 12/13 12/13 0617 1638 1410 Chemistry Sodium (137 - 145 mmol/L) 140 135 L Potassium (3.5 - 5.1 mmol/L) 3.8 4.2 Chloride (98 - 107 mmol/L) 101 94 L Carbon Dioxide (22 - 30 mmol/L) 30 32 H Anion Gap (5 - 16) 9 9 BUN (9 - 20 mg/dL) 34 H 41 H Creatinine (0.7 - 1.2 mg/dL) 1.1 1.5 H Estimated GFR (>60 ml/min) > 60 45 L BUN/Creatinine Ratio (7 - 25 %) 30.9 H 27.3 H Glucose (65 - 99 mg/dL) 91 99 Lactic Acid (0.7 - 2.1 mmol/L) Cancelled 1.2 Calcium (8.4 - 10.2 mg/dL) 7.5 L 8.0 L Total Bilirubin (0.2 - 1.3 mg/dL) 0.5 1.0 AST (17 - 59 U/L) 29 26 ALT (21 - 72 U/L) 24 17 L Alkaline Phosphatase (< 127 U/L) 68 75 Total Protein (6.3 - 8.2 g/dL) 6.3 7.7 Albumin (3.5 - 5.0 g/dL) 2.8 L 3.5 Globulin (1.9 - 4.2 gm/dL) 3.5 4.2 Albumin/Globulin Ratio (1.1 - 2.2 %) 0.8 L 0.8 L Hematology CBC w Diff Pending NO MAN DIFF REQ WBC (4.8 - 10.8 /CUMM) Pending 15.8 H RBC (4.70 - 6.10 /CUMM) Pending 4.23 L Hgb (14.0 - 18.0 G/DL) Pending 12.1 L Hct (42 - 52 %) Pending 36.6 L MCV (80.0 - 94.0 FL) Pending 86.6 MCH (27.0 - 31.0 PG) Pending 28.7 MCHC (33.0 - 37.0 G/DL) Pending 33.2 RDW (11.5 - 14.5 %) Pending 15.8 H Plt Count (130 - 400 /CUMM) Pending 239 MPV (7.4 - 10.4 FL) Pending 7.2 L Gran % (42.2 - 75.2 %) Pending 93.4 H Lymphocytes % (20.5 - 51.1 %) Pending 2.3 L Monocytes % (1.7 - 9.3 %) Pending 4.2 Eosinophils % (0 - 5 %) Pending 0 Basophils % (0.0 - 2.0 %) Pending 0.1 Absolute Granulocytes (1.4 - 6.5 /CUMM) Pending 14.8 H Absolute Lymphocytes (1.2 - 3.4 /CUMM) Pending 0.4 L Absolute Monocytes (0.10 - 0.60 /CUMM) Pending 0.7 H Absolute Eosinophils (0.0 - 0.7 /CUMM) Pending 0 Absolute Basophils (0.0 - 0.2 /CUMM) Pending 0 Microbiology Date/Time Procedure - Status Source Growth 12/14 1448 Clostridium difficile Toxin A & B - COLB STOOL 12/13 1454 Blood Culture - RES BLOOD 12/13 1410 Blood Culture - RES BLOOD Impression/Plan Impression/Plan Impression/Plan: General Appearance Alert, Oriented X3, Cooperative HEENT Atraumatic, PERRLA, EOMI, Mucous Membr. moist/pink Neck Supple, No JVD, No thryomegaly Cardiovascular Regular Rate, Normal S1, Normal S2 Lungs Clear to Auscultation, Normal Air Movement Abdomen Normal Bowel Sounds, Soft, No Tenderness Extremities RLE ulcerated areas lesion to the lateral aspect, skin and toe scaling, skin discoloration LLE warmth, skin erythema with drainage IMPRESSION This is a gentleman with hypertension, hyperlipidemia, morbid obesity, atrial fibrillation on eloquis, hyperlipidemia, chronic venous insufficiency with chronic venous ulcer, prior stent of his vein for chronic venous insufficiency done by vascular surgery, now comes in with * Infected venous foot chronic ulcer with soft tissue infection with prior multiple organisms, ID and podiatry onboard * Chronic venous insufficiency * Initial Diarrhea with no clinical cdiff but needs to be ruled out * ADALGISA with dehydration improving * HTN, pafib, Hyperlipidemia, BPH stable REC Cont iv abx Ask podiatry to see COnt current meds Elevate foot and hold diuretics and gentle hydration can be stopped COnt all meds WIll follow
[2017-12-15 10:06] LABS: HEMATOCRIT 31.6 % (42-52); WHITE BLOOD CELL COUNT 6.9 /CUMM (4.8-10.8)
--- NOTE | 2017-12-15 10:32 | PN- Infect Dx ---
Subjective Subjective: Afebrile. He feels improved with decreased left leg pain. Objective Last 24 Hrs of Vital Signs/I&O Vital Signs Date Time Temp Pulse Resp B/P B/P Pulse O2 O2 Flow FiO2 Mean Ox Delivery Rate 12/16 0719 120/72 12/15 0621 98.4 62 18 120/72 93 Room Air 12/15 2043 74 140/82 12/15 2043 74 140/82 12/14 2006 98.5 74 18 140/82 93 Room Air 12/14 144 98.2 68 20 122/64 92 Room Air Intake & Output 12/15 1600 12/15 0800 12/15 0000 Intake Total 880 880 Output Total 495 300 Balance 385 580 Intake, IV 400 400 Intake, Oral 480 480 Number 0 Bowel Movements Output, Urine 495 300 Patient 296 lb Weight Physical Exam Other Physical Findings: He appears comfortable in no acute distress Extremities decreased erythema and edema of the left leg, nontender to palpation ; right foot and leg dressing intact Results Last 24 Hours of Lab Results: Laboratory Tests 12/15 616 Chemistry Sodium (137 - 145 mmol/L) 140 Potassium (3.5 - 5.1 mmol/L) 3.8 Chloride (98 - 107 mmol/L) 101 Carbon Dioxide (22 - 30 mmol/L) 30 Anion Gap (5 - 16) 9 BUN (9 - 20 mg/dL) 34 H Creatinine (0.7 - 1.2 mg/dL) 1.1 Estimated GFR (>60 ml/min) > 60 BUN/Creatinine Ratio (7 - 25 %) 30.9 H Glucose (65 - 99 mg/dL) 91 Calcium (8.4 - 10.2 mg/dL) 7.5 L Total Bilirubin (0.2 - 1.3 mg/dL) 0.5 AST (17 - 59 U/L) 29 ALT (21 - 72 U/L) 24 Alkaline Phosphatase (< 127 U/L) 68 Total Protein (6.3 - 8.2 g/dL) 6.3 Albumin (3.5 - 5.0 g/dL) 2.8 L Globulin (1.9 - 4.2 gm/dL) 3.5 Albumin/Globulin Ratio (1.1 - 2.2 %) 0.8 L Hematology CBC w Diff MAN DIFF ORDERED WBC (4.8 - 10.8 /CUMM) 6.9 RBC (4.70 - 6.10 /CUMM) 3.61 L Hgb (14.0 - 18.0 G/DL) 10.4 L Hct (42 - 52 %) 31.6 L MCV (80.0 - 94.0 FL) 87.5 MCH (27.0 - 31.0 PG) 28.9 MCHC (33.0 - 37.0 G/DL) 33.0 RDW (11.5 - 14.5 %) 16.4 H Plt Count (130 - 400 /CUMM) 219 MPV (7.4 - 10.4 FL) 7.5 Gran % (42.2 - 75.2 %) 85.1 H Lymphocytes % (20.5 - 51.1 %) 7.1 L Monocytes % (1.7 - 9.3 %) 6.4 Eosinophils % (0 - 5 %) 1.2 Basophils % (0.0 - 2.0 %) 0.2 Absolute Granulocytes (1.4 - 6.5 /CUMM) 5.9 Segmented Neutrophils (42.2 - 75.2 %) 80 H Band Neutrophils (0.0 - 5.0 %) 8 H Absolute Lymphocytes (1.2 - 3.4 /CUMM) 0.5 L Lymphocytes (20.5 - 51.1 %) 7 L Monocytes (1.7 - 9.3 %) 4 Absolute Monocytes (0.10 - 0.60 /CUMM) 0.4 Eosinophils (0 - 5.0 %) 1 Absolute Eosinophils (0.0 - 0.7 /CUMM) 0.1 Absolute Basophils (0.0 - 0.2 /CUMM) 0 Platelet Estimate (ADEQUATE) VERIFIED BY SMEAR Anisocytosis 1+ Last 24 Hours of Charly Results: Blood cultures 2 December 13 negative Assessment/Plan ID Impression: Stable, with temperatures and white blood cell count now normal, on Unasyn, Day 2 of treatment for a left leg cellulitis. His right foot ulcerations and inflammation appear to be chronic but will await Podiatry follow-up. Suggestion: 1. Await Podiatry input 2. Continue Unasyn but, if remains stable, can change to Augmentin 875 mg p.o. every 12 hours to complete a 7 day course of treatment
[2017-12-15 15:13] VITALS: BP 120/80
--- NOTE | 2017-12-15 15:13 | Cons- Podiatry ---
General Information and HPI Consulting Request Date of Consult: 12/15/17 Requested By: Hanh DOWNEY,Bartolo Dumont History of Present Illness: Elder is a 77 year old male with an extensive past medical history, including chronic venous insufficiency who presented to the wound center with a 2 day history of fevers and worsening redness, swelling to the left leg. Allergies/Medications Allergies: Coded Allergies: solifenacin (From VESICARE) (EYES SWELL 12/13/17) Home Med List: Apixaban (Eliquis) 2.5 MG TABLET 1 TAB PO BID AFIB (Reported) Furosemide 40 MG TABLET 2 TAB PO DAILY WATER RETENTION (Reported) Metoprolol Tartrate (Lopressor) 100 MG TABLET 1 TAB PO BID BP (Reported) Multivitamin (Daily Multiple Vitamin) 1 EACH TABLET 0.5 TAB PO BID VITAMIN SUPPORT (Reported) Simvastatin (Zocor*) 20 MG TABLET 1 TAB PO QPM CHOLESTEROL (Reported) Tamsulosin HCl (Flomax) 0.4 MG CAP.ER.24H 1 CAP PO QPM bph (Reported) Vitamin E Acetate (Vitamin E) 400 UNIT CAPSULE 1 CAP PO DAILY SUPPLEMENT ( Reported) Past History Medical History Blood Transfusion Hx: No Neurological: NONE EENT: NONE Cardiovascular: AFIB, CAD, chronic venous insuff, hypertension, hyperlipidemia, PVD Respiratory: pneumonia Gastrointestinal: NONE Hepatic: NONE Renal: benign prost hyperplasia Musculoskeletal: NONE Psychiatric: NONE Endocrine: obesity Blood Disorders: NONE Cancer(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 Home Services at Home: None Smoking Status: Never Smoked ETOH Use: denies use Illicit Drug Use: denies illicit drug use Assessment/Plan Consult Acknowledgment - Thank you for your consult request.
--- NOTE | 2017-12-15 17:34 | Patient Discharge Instructions ---
Discharge Instructions General Discharge Information You were seen/treated for: Please follow-up with your PCP within a week of discharge Please take the medication as advised Please follow-up with Dr. Fuentes for further management of the right foot. Special Instructions: Please follow-up with Dr. Fuentes for further management of right foot Diet Recommended Diet: Heart Healthy Acute Coronary Syndrome Inclusion Criteria At DC or during hospital stay patient has or had the following: ACS DIAGNOSIS No Discharge Core Measures Meds if any: Prescribed or Continued at Discharge Meds if any: NOT Prescribed or Continued at Discharge Congestive Heart Failure Inclusion Criteria At DC or during hospital stay patient has or had the following: CHF DIAGNOSIS No Discharge Core Measures Meds if any: Prescribed or Continued at Discharge Meds if any: NOT Prescribed or Continued at Discharge Cerebrovascular accident Inclusion Criteria At DC or during hospital stay patient has or had the following: CVA/TIA Diagnosis No Discharge Core Measures Meds if any: Prescribed or Continued at Discharge Meds if any: NOT Prescribed or Continued at Discharge Venous thromboembolism Inclusion Criteria VTE Diagnosis No VTE Type NONE VTE Confirmed by (Test) NONE Discharge Core Measures - Per Current guidelines, there needs to be overlap - treatment for the first 5 days of Warfarin therapy. - If discharged on Warfarin prior to 5 days of - overlap therapy, the patient will need to be - assessed for post discharge needs including - *Post discharge parental anticoagulation - *Warfarin and/or parental anticoagulation education - *Follow up date to check INR post discharge At least 5 days overlap therapy as Inpatient No Meds if any: Prescribed or Continued at Discharge Note: Overlap Therapy is Warfarin and Anticoagulant Meds if any: NOT Prescribed or Continued at Discharge
[2017-12-15] MEDS ORDERED: AUGMENTIN 875-1 EACH PO (17:36)
[2017-12-15 20:36] VITALS: BP 118/70
[2017-12-16 06:37] VITALS: BP 116/66
--- NOTE | 2017-12-16 07:09 | PN- Housestaff ---
See Addendum Subjective Follow-up For: LLE cellulitis RLE nonhealing ulcers ADALGISA Subjective: Patient offers no complaints, anticipates to be discharged today. Denies fever, chills, nausea, vomiting, lower extremity tenderness, diarrhea or urinary symptoms Review of Systems Constitutional: Reports: see HPI. Objective Last 24 Hrs of Vital Signs/I&O Vital Signs Date Time Temp Pulse Resp B/P B/P Pulse O2 O2 Flow FiO2 Mean Ox Delivery Rate 12/16 0811 71 122/80 12/16 0637 97.3 71 21 116/66 93 12/16 0000 97 Room Air 12/16 2035 97.7 60 20 118/70 97 Room Air 12/15 2035 60 118/70 12/154 60 118/70 12/15 1513 97.7 58 20 120/80 97 Room Air Intake & Output 12/16 1600 12/16 0800 12/16 0000 Intake Total 470 350 Output Total 800 500 Balance -330 -150 Intake, IV 350 150 Intake, Oral 120 200 Number 0 Bowel Movements Output, Urine 800 500 Patient 297 lb Weight Physical Exam General Appearance: Alert, Oriented X3, Cooperative, No Acute Distress Cardiovascular: Regular Rate, Normal S1, Normal S2 Lungs: Clear to Auscultation, Normal Air Movement Abdomen: Normal Bowel Sounds, Soft, No Tenderness Extremities: LLE skin erythema with serosanguinous drainage, chronic RLE ulcerative wounds Current Medications: Current Medications Sig/Maria Teresa Start time Last Medication Dose Route Stop Time Status Admin Acetaminophen 325 MG Q4P PRN 12/14 1200 AC PO Ampicillin Sodium/ 3,000 MG Q6 12/13 2359 AC 12/16 Sulbactam Sodium IV 0558 Sodium Chloride 100 ML Apixaban 2.5 MG BID 12/13 2100 AC 12/16 PO 0808 Atorvastatin Calcium 10 MG 1700 / 1700 AC 12/15 PO 1801 Metoprolol Tartrate 100 MG BID 12/13 2100 AC 12/16 PO 0811 Sodium Chloride 1,000 ML Q20H 12/13 1930 DC 12/15 IV 12/15 2300 2331 Tamsulosin HCl 0.4 MG QPM 12/13 2100 AC 12/15 PO 2034 Last 24 Hrs of Lab/Charly Results Last 24 Hrs of Labs/Mics: Laboratory Tests 12/16/17 0700: CBC w Diff Pending, WBC Pending, RBC Pending, Hgb Pending, Hct Pending, MCV Pending, MCH Pending, MCHC Pending, RDW Pending, Plt Count Pending, MPV Pending Assessment/Plan Assessment: Mr. Everett is a 68-year-old man with a history of atrial fibrillation, coronary artery disease, chronic venous insufficiency, with recurrent cellulitis Problem list: #LLE Cellulitis #RLE nonhealing ulcers #ADALGISA - resolved Plan: Blood cultures shows no growth thus far Continue IV Unasyn, we will transition to Augmentin 875 mg BID to complete a 7 day course of treatment Continue home medications: Apixaban, Metoprolol, statin, Tamsulosin Appreciate Wound/Podiatry recommendations Appreciate ID recommendations Diet: Heart healthy DVT ppx: sc heparin Code: Full Dispo: Home Problem List: 1. Cellulitis of left leg Pain Ratin Pain Location: NA Pain Goal: Remain pain free Pain Plan: NA Tomorrow's Labs & Rationales: none
[2017-12-16 08:11] VITALS: BP 122/80
[2017-12-16 09:58] LABS: ABSOLUTE BASOPHIL COUNT 0 /CUMM (0.0-0.2); ABSOLUTE EOSINOPHIL COUNT 0.2 /CUMM (0.0-0.7); ABSOLUTE GRANULOCYTE CT 4.8 /CUMM (1.4-6.5); ABSOLUTE LYMPH COUNT 0.6 /CUMM (1.2-3.4); ABSOLUTE MONOCYTE COUNT 0.6 /CUMM (0.10-0.60); BASOPHIL % 0.3 % (0.0-2.0); EOSINOPHIL % 2.5 % (0-5); GRANULOCYTE % 78.2 % (42.2-75.2); HEMATOCRIT 31.9 % (42-52); MEAN CORPUSCULAR HGB 28.9 PG (27.0-31.0); MEAN CORPUSCULAR VOLUME 87.4 FL (80.0-94.0); MEAN PLATELET VOLUME 7.5 FL (7.4-10.4); PLATELET COUNT 224 /CUMM (130-400); RBC DISTRIBUTION WIDTH 16.2 % (11.5-14.5); RED BLOOD CELL CT 3.65 /CUMM (4.70-6.10); WHITE BLOOD CELL COUNT 6.2 /CUMM (4.8-10.8)
[2017-12-16] MEDS ORDERED: AUGMENTIN 875-1 EACH PO (10:40)
--- NOTE | 2017-12-16 11:02 | Discharge Summary ---
Visit Information Visit Dates Admission Date: 12/13/17 Discharge Date: 12/16/17 Hospital Course Course Attending Physician: Bartolo Schafer MD Primary Care Physician: Bartool Schafer MD Hospital Course: Mr. Everett is a 68-year-old man with a history of atrial fibrillation, coronary artery disease, chronic venous insufficiency, with recurrent cellulitis. He was admitted to the general medical floor for further evaluation and management #Left lower extremity Cellulitis with chronic right lower extremity nonhealing ulcers Infectious diseases and Podiatry were consulted. Blood cultures were drawn that reported no growth. He was administered IV Unasyn and subsequently transitioned to Augmentin 875 mg BID to complete a 7 day course of treatment #ADALGISA Labs were significant for a creatinine of 1.5 that trended down to 1.1. His acute kidney injury was suspected to be due to dehydration. He was given adequate IV fluids #Chronic medical conditions He was resumed on his home medications Allergies: Coded Allergies: solifenacin (From [employer]) (EYES SWELL 12/13/17) Pertinent Lab Results: 12/13/17-1343 EXAM TYPE: US - US-UNILATERAL VENOUS DOPPLER IMPRESSION: 1. Normal triplex scan without evidence of deep venous thrombosis involving the left lower extremity. 2. There are prominent lymph nodes in the left groin, measuring up to 3.2 cm. 3. There are no focal fluid collections. Disposition Summary Disposition Principal Diagnosis: LLE cellulitis ADALGISA Additional Diagnosis: As above Discharge Disposition: home health services Discharge Instructions General Discharge Information Code Status: Full Code Patient's Diet: Heart healthy Patient's Activity: As tolerated Follow-Up Instructions/Appts: Please follow-up with your PCP within a week of discharge Please take the medication as advised Please follow-up with Dr. Fuentes for further management of the right foot. Medications at Discharge Discharge Medications: Continue taking these medications: Furosemide (Furosemide) 40 MG TABLET 2 Tablet ORAL DAILY Comments: NOT GIVEN IN HOSPITAL Tamsulosin HCl (Flomax) 0.4 MG CAP.ER.24H 1 Capsule ORAL Every night Comments: Last Taken: 12/15/17 Time: 2034PM Metoprolol Tartrate (Lopressor) 100 MG TABLET 1 Tablet ORAL TWICE DAILY Comments: Last Taken: 12/16/17 Time: 0800AM Simvastatin (Zocor*) 20 MG TABLET 1 Tablet ORAL Every night Comments: Last Taken: 12/15/17 Time: 1800PM Vitamin E Acetate (Vitamin E) 400 UNIT CAPSULE 1 Capsule ORAL DAILY Comments: NOT GIVEN IN HOSPITAL Multivitamin (Daily Multiple Vitamin) 1 EACH TABLET 0.5 Tablet ORAL TWICE DAILY Comments: NOT GIVEN IN HOSPITAL Apixaban (Eliquis) 2.5 MG TABLET 1 Tablet ORAL TWICE DAILY Comments: Last Taken: 12/16/17 Time: 0800AM Start taking the following new medications: Amoxicillin/Potassium Clav (Augmentin 875-125 Tablet) 875 MG-125 MG TABLET 1 Tablet ORAL TWICE DAILY Qty = 10 No Refills Instructions: . Comments: Last Taken: 12/16/17 Time: 1022AM Copies To: Hanh DOWNEY,Bartolo Dumont; Artemio Corral DPM, MD,Morris Ford
== END 2017-12-16 11:30 | disposition home health service (06) | DRG 603 ==
LOC: ERH 12:34 → 2NB 16:00 → ERHI 16:00 → ENRESERV 17:17 → ENTRNSPT 18:00 → EDTRNSPT 18:06 → EDTRNSPTSTS 18:06 → 2NB 18:35 → CMPTRNSPT 18:51 → ENPENDDIS 12-16 10:43 → ENTRNSPT 12-16 11:16 → EDTRNSPTSTS 12-16 11:19 → EDTRNSPT 12-16 11:19 → 2NB 12-16 11:30 → CMPTRNSPT 12-16 11:53
PROVIDERS: Physician Assistant; Student in an Organized Health Care Education/Training Program
DX: L03.116 Cellulitis of left lower limb (principal); N17.9 Acute kidney failure, unspecified; I48.2 Chronic atrial fibrillation; E66.01 Morbid (severe) obesity due to excess calories; L97.919 Non-pressure chronic ulcer of unspecified part of right lower leg with unspecified severity; I73.9 Peripheral vascular disease, unspecified; I25.10 Atherosclerotic heart disease of native coronary artery without angina pectoris; I87.2 Venous insufficiency (chronic) (peripheral); Z88.8 Allergy status to other drugs, medicaments and biological substances; E78.5 Hyperlipidemia, unspecified; N40.0 Benign prostatic hyperplasia without lower urinary tract symptoms; Z68.37 Body mass index [BMI] 37.0-37.9, adult
CPT/HCPCS: 2NBP; 36592; 87040; 93005; 93010; 96374; J2185